=== PATIENT | female | born 1950 | race Caucasian/White ===

== ENCOUNTER → 2017-10-01 | Outpatient (CLI) | payer MEDICARE ==
--- NOTE | 2017-10-01 14:07 | US ---
EXAMINATION TYPE: US venous doppler duplex LE LT DATE OF EXAM: 10/01/2017 1:59 PM COMPARISON: US CLINICAL HISTORY: R60.0 Edema. Pt having pain left leg s/p fall SIDE PERFORMED: Left TECHNIQUE: The lower extremity deep venous system is examined utilizing real time linear array sonog braulio with graded compression, doppler sonography and color-flow sonography. VESSELS IMAGED: External Iliac Vein (EIV) Common Femoral Vein Deep Femoral Vein Greater Saphenous Vein * Femoral Vein Popliteal Vein Small Saphenous Vein * Proximal Calf Veins (* superficial vessels) Grayscale, color doppler, spectral doppler imaging performed of the deep veins of the lower extremity There is normal flow, compressibility, vascular waveforms. Left Leg: Negative for DVT Left message at Dr's office to Nubia at time of exam IMPRESSION: No evidence for DVT at this time.
== END | disposition home or self-care (01) ==
LOC: RADUSWWP 13:06
PROVIDERS: ATTEND Family Medicine
DX: R60.0 Localized edema (principal)

== ENCOUNTER → 2022-01-27 | Outpatient (CLI) | payer MEDICARE ==
--- NOTE | 2022-01-27 16:01 | P.SLEEP ---
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 Her sister has ZENA and on several occasions she has been told by her sister that she snores and she quits breathing at night. For that reason, the patient is concerned. 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 She is feeling tired and sleepy during the day. No restlessness in the lower extremity. No sleep paralysis sputum no hallucinati ons. No cataplexy. She has gained no weight over the years in fact she has lost approximately 9 pounds over the past 6 months. She doesn't take any naps during the day. No motor vehicle accident because of feeling drowsy or sleepy. No episodes of waking up choking or gasping for air. No unusual behavior or any form of aggressive behavior during sleep. No other history of any substance abuse. No alcoholism. The patient drinks one cup of decaffeinated coffee in the morning. She has chronic anxiety. She has history of heartburn for which she's taken Protonix 40 mg by mouth daily. She takes Xanax on an as needed basis. Her bronchial asthma is currently well controlled. Review of Systems Constitutional: Reports daytime sleepiness, Reports fatigue Eyes: denies as per HPI, denies blurred vision, denies bulging eye, denies decreased vision, denies diplopia, denies discharge, denies dry eye, denies irritation, denies itching, denies pain, denies photophobia, denies loss of peripheral vision, denies loss of vision, denies tunnel vision/blind spots Ears: deny: decreased hearing, ear discharge, earache, tinnitus Ears, nose, mouth and throat: Reports as per HPI (patient has chronic snoring) Breasts: absent: as per HPI, change in shape, gynecomastia, masses, nipple discharge, pain, skin changes, swelling Breasts: Reports as per HPI Cardiovascular: Reports decreased exercise tolerance Respiratory: Reports as per HPI, Reports snoring Gastrointestinal: Reports as per HPI Genitourinary: Reports as per HPI (tress urinary incontinence) Menstruation: Reports as per HPI Musculoskeletal: Reports frequent falls Musculoskeletal: absent: ankle pain, ankle stiffness, ankle swelling Integumentary: Reports as per HPI Neurological: Reports balance difficulties, Reports gait dysfunction, Reports weakness Psychiatric: Reports as per HPI Endocrine: Reports as per HPI Hematologic/Lymphatic: Reports as per HPI Allergic/Immunologic: Reports as per HPI Past Medical History Past Medical History: GERD/Reflux, Hyperlipidemia, Hypertension, Musculoskeletal Disorder Additional Past Medical History / Comment(s): urinary incontinence, IBS, s. heart murmur, back spasms History of Any Multi-Drug Resistant Organisms: None Reported Past Surgical History: Hernia Repair, Tonsillectomy Additional Past Surgical History / Comment(s): cystoscopy, colonoscopy Past Anesthesia/Blood Transfusion Reactions: No Reported Reaction Past Alcohol Use History: Occasional Past Drug Use History: None Reported Medications and Allergies Home Medications Medication Instructions Recorded Confirmed Type Aspirin 81 mg PO MOFR 02/14/15 02/19/15 History Baclofen [Lioresal] 10 mg PO TID PRN 02/14/15 02/19/15 History Cholecalciferol [Vitamin D3] 2,000 unit PO DAILY@1200 02/14/15 02/19/15 History Hyoscyamine Sulfate [Levsin] 0.125 mg PO Q4-6H PRN 02/14/15 02/19/15 History Ibuprofen [Motrin] 200 - 400 mg PO Q6HR PRN 02/14/15 02/19/15 History Lansoprazole [Prevacid] 30 mg PO DAILY 02/14/15 02/19/15 History Lisinopril-Hctz 20-25 mg 1 each PO DAILY 02/14/15 02/19/15 History [Zestoretic 20-25] Loperamide [Imodium] 1 mg PO QID PRN 02/14/15 02/19/15 History Oxybutynin Chloride [Ditropan] 5 mg PO BID 02/14/15 02/19/15 History Simvastatin [Zocor] 20 mg PO HS 02/14/15 02/19/15 History metroNIDAZOLE 1% GEL [Metrogel] 1 applic TOPICAL DAILY PRN 02/14/15 02/19/15 History Allergies Allergy/AdvReac Type Severity Reaction Status Date / Time Sulfa (Sulfonamide Allergy Rash/Hives Verified 02/19/15 07:53 Antibiotics) pentazocine lactate AdvReac Unknown Verified 02/19/15 07:53 [From Talwin] propoxyphene HCl AdvReac Unknown Verified 02/19/15 07:53 [From Darvon] propoxyphene napsylate AdvReac Unknown Verified 02/19/15 07:53 [From Darvocet-N] Physical Exam BP is 117/73, pulse is 75, respiration is 16, weight is 254 pounds, and the patient's Quicksburg score is at 6. Height is 5 feet 5 inches. Temperature is 96.8. Oxygen saturation is 97% on room air oxygen. The patient appeared well nourished and normally developed. Vital signs as documented. Head exam is unremarkable. No scleral icterus or corneal arcus noted. Neck is without jugular venous distension, thyromegaly, or carotid bruits. Carotid upstrokes are brisk bilaterally. Lungs are clear to auscultation and percussion. Cardiac exam reveals the PMI to be normally sized and situated. Rhythm is regular. First and second heart sounds normal. No murmurs, rubs or gallops. Abdominal exam reveals normal bowel sounds, no masses, no organomegaly and no aortic enlargement. Extremities are nonedematous and both femoral and pedal pulses are normal.Examination of the skin revealed no evidence of significant rashes, suspicious appearing nevi or other concerning lesions.Neurologically, the patient is awake and alert and the patient does not have any focal neurological deficit. Cranial nerves are essentially intact. Assessment and Plan Plan: 1 chronic fatigue/hypersomnia with an Quicksburg 6 with history of snoring or witnessed apneas. Consider underlying possibility of obstructive sleep apnea.in addition, the patient has developed a component of delayed sleep phase syndromesince fci. 2 chronic bronchial asthma, inactive in stable 3 chronic anxiety/depression 4. Urge incontinence while treated 5 acid reflux, treated with Protonix 6 osteoarthritis 7 hyperlipidemia 8 hypertension 9 difficulties with balance and mobility Plan we'll screen this patient 4 obstructive sleep apnea. I prefer to proceed with a home sleep study as the patient is unable to fall asleep early at night and she is following sleep after 4 AM. Having said this, we are going to gradually phase transition this patient to an earlier sleep schedule. The appropriate instructions were given to gradually transition this patient an earlier sleep schedule in an attempt to make asleep between 2 AM and 10 AM. This is the preferred sleep or sleeping time for this patient. At the same time, we are going to screen this patient for obstructive sleep apnea by a home study. We'll make further recommendation treatment if needed. Sleep Note - Sleep Note Sleep Note: Temperature: Pulse Rate: Respiratory Rate: Blood Pressure: SpO2: Height: Weight: BMI: Neck Circumference:
== END | disposition home or self-care (01) ==
LOC: SLEEP 15:01
PROVIDERS: ATTEND Internal Medicine Critical Care Medicine
DX: J45.909 Unspecified asthma, uncomplicated (principal); K21.9 Gastro-esophageal reflux disease without esophagitis; M19.90 Unspecified osteoarthritis, unspecified site; E78.5 Hyperlipidemia, unspecified; I10 Essential (primary) hypertension
CPT/HCPCS: 99211

== ENCOUNTER → 2022-06-08 | Outpatient (CLI) | payer MEDICARE ==
[2022-06-08 22:28] LABS: Basophils # (A) 0.03 X 10*3/uL (0.00-0.10); Basophils % (A) 0.5 %; Eosinophils # (A) 0.12 X 10*3/uL (0.04-0.35); Eosinophils % (A) 2.2 %; HCT 40.7 % (37.2-46.3); HGB 12.8 g/dL (12.0-15.0); Immature Grans, Automated 0.2 %; Lymphocytes # (A) 1.49 X 10*3/uL (0.90-5.00); Lymphocytes % (A) 27.1 %; MCH 29.2 pg (27.0-32.0); MCHC 31.4 g/dL (32.0-37.0); MCV 92.9 fL (80.0-97.0); Mean Platelet Volume 9.8 fL (9.5-12.2); Monocytes # (A) 0.46 X 10*3/uL (0.20-1.00); Monocytes % (A) 8.4 %; NRBC Per 100 WBC 0 /100 WBCS (0.0-0.0); Neutrophils # (A) 3.39 X 10*3/uL (1.80-7.70); Neutrophils % (A) 61.6 %; Platelet Count 282 X 10*3/uL (140-440); RBC 4.38 X 10*6/uL (4.10-5.20); RDW 14.4 % (11.5-14.5)
== END | disposition home or self-care (01) ==
LOC: LABWHC1 16:25
PROVIDERS: ATTEND Internal Medicine Critical Care Medicine
DX: R91.8 Other nonspecific abnormal finding of lung field (principal); R05.9 Cough, unspecified
CPT/HCPCS: 36415; 85025; 86480

== ENCOUNTER → 2022-06-16 | Outpatient (CLI) | payer MEDICARE ==
[2022-06-16 15:45] LABS: ALT 11 U/L (4-34); AST 27 U/L (14-36); African American GFR (CKD) 75 (>60 ml/min/1.73 sqM); Albumin 4.2 g/dL (3.5-5.0); Albumin/Globulin Ratio 1.8; Alkaline Phosphatase 65 U/L (38-126); Anion Gap 11 mmol/L; Blood Urea Nitrogen 21 mg/dL (7-17); Carbon Dioxide 24 mmol/L (22-30); Chloride 105 mmol/L (98-107); Globulin 2.4 g/dL; Glucose 105 mg/dL (74-99); Non-African American GFR(CKD) 65 (>60 ml/min/1.73 sqM); Potassium 3.9 mmol/L (3.5-5.1); Sodium 140 mmol/L (137-145); Total Bilirubin 0.7 mg/dL (0.2-1.3); Total Protein 6.6 g/dL (6.3-8.2)
--- NOTE | 2022-06-16 17:55 | CT ---
EXAMINATION TYPE: CT angio chest CT DLP: 600.2 mGycm, Automated exposure control for dose reduction was used. DATE OF EXAM: 06/16/2022 4:29 PM COMPARISON: Chest radiograph 06/11/2022. Prior CT chest report 06/04/2022. CLINICAL INDICATION:Female, 72 years old with history of J18.1 LOBAR PNEUMONIA, UNSPECIFIED ORGANISM; Lobar pneumonia. Pt states she has pain and bloody sputum TECHNIQUE/CONTRAST: CTA scan of the thorax is performed with IV Contrast, patient injected with 100cc mL of Isovue 370, p ulmonary embolism protocol. MIP images are created and reviewed. FINDINGS: Pulmonary Artery: No definitive filling defects to suggest pulmonary emboli. The pulmonary artery is enlarged measuring 4 cm. No reflux of contrast in the IVC. Lungs/Pleura: No pneumothorax or pleural effusion. Pleural-based somewhat wedge-shaped consolidative opacities within the superior segment of the right lower lobe. Airway: Large airways are patent. Heart: Heart is within normal limits for size.. No pericardial effusion. Vasculature: No evidence of aortic aneurysm. Mediastinum: No gross evidence of adenopathy. Musculoskeletal: No acute osseous abnormalities. Degenerative changes of the visualized spine. Soft Tissues: Unremarkable. Lower neck: No significant findings. Upper Abdomen: Cysts demonstrated within the left hepatic lobe with largest measuring up to 1.7 cm. N onobstructive bilateral renal calculi with largest on the right measuring 11 mm and largest on the le ft measuring 8 mm. IMPRESSION: 1. No definitive evidence of pulmonary embolism. 2. Pleural-based somewhat wedge-shaped consolidative opacities within the superior segment of the rig ht lower lobe. Etiologies include pulmonary infarct versus neoplasm versus infection. Further workup is recommended with consideration for short-term follow-up. 3. Pulmonary arterial hypertension. 4. Nonobstructive bilateral renal calculi.
== END | disposition home or self-care (01) ==
LOC: RADCTMAIN 14:38
PROVIDERS: ATTEND Internal Medicine Critical Care Medicine
DX: I26.99 Other pulmonary embolism without acute cor pulmonale (principal); I10 Essential (primary) hypertension; N20.0 Calculus of kidney
CPT/HCPCS: 85379; 80053; 87107; 71275; 36415; Q9967

== ENCOUNTER → 2022-10-14 | Outpatient (CLI) | payer MEDICARE ==
--- NOTE | 2022-10-15 21:48 | CT ---
EXAMINATION TYPE: CT chest wo con DATE OF EXAM: 10/14/2022 COMPARISON: 06/16/2022 HISTORY: 72 year-old female J18.1, follow-up pneumonia, pt did have blood clot in lungs sept 2021. TECHNIQUE: Contiguous axial scanning of the chest without IV contrast. Coronal and sagittal reconstru ctions performed. CT DLP: 492 mGycm Automated exposure control for dose reduction was used. FINDINGS: Heart is upper limits of normal in size with small anterior pericardial effusion measuring up to 8 mm thick. Scattered three-vessel coronary artery calcifications are present anterior marker for coronar y artery disease. Mild episodic arch calcifications with conventional arch also branching anatomy. No thoracic lymphadenopathy by CT size criteria. Large caliber to the main right and left pulmonary arteries measuring up to 3.3 cm compatible with un derlying pulmonary hypertension. Calcified granuloma posterior right midlung. Couple tiny 3 mm pulmonary nodules lateral left midlung , axial image 27 remain unchanged. Minimal emphysematous change. Mild diffuse bronchial wall thickening. Previous lobulated subpleural o pacities posterior right midlung measuring up to 3.5 cm have partially improved and now have a more s trandy configuration suggesting interval development of pleural-parenchymal scarring. No progressive consolidation or pleural effusion. Visualized upper abdomen shows no gross adenopathy. Bones: Pectus carinatum noted. Degenerative change sternoclavicular joints. Mild degenerative disc di sease at the lower thoracic spine. No osseous destructive process. IMPRESSION: 1. UNDERLYING PULMONARY ARTERIAL HYPERTENSION. MINIMAL EMPHYSEMATOUS CHANGE. EVIDENCE OF PRIOR GRANUL OMATOUS DISEASE. 2. PREVIOUS 3.5 CM LOBULATED SUBPLEURAL OPACITY POSTERIOR RIGHT MIDLUNG HAS PARTIALLY IMPROVED AND NO W HAS A MORE STRANDY CONFIGURATION SUGGESTING INTERVAL DEVELOPMENT OF PLEURAL-PARENCHYMAL SCARRING. C ONSIDER AN ADDITIONAL ONE-YEAR SURVEILLANCE FOLLOW-UP. 3. NO NEW OR ENLARGING PULMONARY NODULE SEEN.
== END | disposition home or self-care (01) ==
LOC: RADCTMAIN 14:17
PROVIDERS: ATTEND Internal Medicine Critical Care Medicine
DX: I27.21 Secondary pulmonary arterial hypertension (principal); J43.9 Emphysema, unspecified; J84.10 Pulmonary fibrosis, unspecified; J18.1 Lobar pneumonia, unspecified organism; R91.8 Other nonspecific abnormal finding of lung field
CPT/HCPCS: 36415; 71250; 82565; 84520

== ENCOUNTER → 2023-03-10 | Outpatient (CLI) | payer MEDICARE ==
[2023-03-10 15:18] LABS: African American GFR (CKD) 69 (>60 ml/min/1.73 sqM); Blood Urea Nitrogen 21 mg/dL (7-17); Non-African American GFR(CKD) 60 (>60 ml/min/1.73 sqM)
--- NOTE | 2023-03-11 15:44 | CT ---
EXAMINATION TYPE: CT urogram wo/w con DATE OF EXAM: 03/10/2023 COMPARISON: None INDICATION: HEMATURIA X YEARS DLP: 5074.40 mGycm, Automated exposure control for dose reduction was used. CONTRAST: 80 mL of Isovue 300. Study performed without Oral Contrast TECHNIQUE: Axial images were obtained from above the diaphragm to the pubic rami in the axial plane a t 5 mm thick sections. Reconstructed images are reviewed on the computer in the coronal plane. Thre e-D reconstructed images through the renal collecting systems is performed separately by the technolo gist. Delayed images were obtained. FINDINGS: CT urogram: Renal collecting systems appear normal. There is slight prominence of the right renal pelvis which may be partially extrarenal. Ureter follows a normal caliber and course and conto ur to the urinary bladder. There are segments of the distal right ureter in the mid left ureter which are not visualized during this examination. No suspicious changes on the source images are evident. Limited CT sections are obtained the lung bases. The lung bases are clear. Coronary artery calcifica tion is present. CT ABDOMEN: Liver: There is a 1.4 cm cyst at the inferior pole right tip of the liver. Spleen: Normal Pancreas: Normal Adrenal glands: The adrenal glands are normal. Gallbladder: Normal Kidneys: There is a 0.7 cm calcification mid left kidney. There is a 1.2 x 0.8 cm mid inferior pole right renal calcification. There is a 0.7 cm calcification in the inferior pole left kidney no obstru cting renal stones are evident. No hydronephrosis or hydroureter is evident.. No cysts are present. Aorta: Vascular calcification is within the aorta. Inferior vena cava: Normal. CT PELVIS: There is an anterior abdominal wall hernia with multiple lobes in opening of 2.8 cm perium bilical region. Loops of bowel within the abdomen and pelvis are normal. The study is without oral contrast limit ing bowel evaluation. Appendix: Normal as visualized. Urinary bladder: Decompressed, and normal as visualized Genitourinary structures: Uterus is normal. Adnexa are normal. Osseous structures: No suspicious lytic or sclerotic lesions. IMPRESSIONS: 1. No suspicious changes CT urogram to account for hematuria 2. Segmental nonvisualization of ureters limits the examination somewhat. 3. Multiple bilateral nonobstructing renal stones
== END | disposition home or self-care (01) ==
LOC: RADCTMAIN 14:24
PROVIDERS: ATTEND Family Medicine
DX: N20.0 Calculus of kidney (principal)
CPT/HCPCS: 82565; 84520; 74178; 36415; 74400; Q9967

== ENCOUNTER → 2023-07-01 | Outpatient (CLI) | payer MEDICARE ==
[2023-07-01 13:16] LABS: African American GFR (CKD) 50 (>60 ml/min/1.73 sqM); Blood Urea Nitrogen 17 mg/dL (7-17); Non-African American GFR(CKD) 43 (>60 ml/min/1.73 sqM)
--- NOTE | 2023-07-01 13:54 | CT ---
EXAMINATION TYPE: CT chest wo con DATE OF EXAM: 07/01/2023 COMPARISON: 10/14/2022 HISTORY: pneumonia CT DLP: [address] of the chest was performed with lung and mediastinal window settings submitted. The la ck of contrast limits evaluation of the vascular, mediastinal and parenchymal structures including th e upper abdomen. LUNGS: There is continued pleural-parenchymal scarring right lower lobe posteriorly unchanged from pr ior study. Scattered sub-5 mm pulmonary nodules some of which are calcified are again noted. No new n odules are seen. There is no evidence for focal consolidation. No volume loss. No evidence of pleural effusion. MEDIASTINUM/CLARA: Thoracic aorta is of normal caliber with limited evaluation given lack of contrast . The heart is not enlarged. No evidence for mediastinal mass. No lymph nodes greater than 1cm. P rominence of the pulmonary artery compatible pulmonary arterial hypertension. Sliver of pericardial e ffusion is redemonstrated. UPPER ABDOMEN: There is a 7.5 mm calculus which is partially imaged in the region of the right renal pelvis. The renal collecting systems appear prominent bilaterally and underlying hydronephrosis is no t excluded. Correlate clinically. OTHER: No significant other abnormality. IMPRESSION: 1. Pleural-parenchymal scarring right lower lobe unchanged. 2. Scattered sub-5 mm pulmonary nodules are stable some of which are calcified indicating granulomato us disease. 3. Pulmonary arterial hypertension redemonstrated. 4. Fullness of the renal collecting systems is partially imaged. Calculus right renal pelvis.
== END | disposition home or self-care (01) ==
LOC: RADCTMAIN 12:16
PROVIDERS: ATTEND Internal Medicine Critical Care Medicine
DX: J18.1 Lobar pneumonia, unspecified organism (principal); J98.4 Other disorders of lung; L92.9 Granulomatous disorder of the skin and subcutaneous tissue, unspecified; R91.8 Other nonspecific abnormal finding of lung field; I27.21 Secondary pulmonary arterial hypertension; N20.0 Calculus of kidney
CPT/HCPCS: 71250; 82565; 84520

== ENCOUNTER → 2023-08-18 | Outpatient (CLI) | payer MEDICARE ==
[2023-08-19 02:38] LABS: Basophils # (A) 0.03 X 10*3/uL (0.00-0.10); Basophils % (A) 0.4 %; Eosinophils % (A) 1.4 %; HCT 35.1 % (37.2-46.3); HGB 10.8 g/dL (12.0-15.0); Lymphocytes # (A) 1.59 X 10*3/uL (0.90-5.00); Lymphocytes % (A) 22.4 %; MCH 26.6 pg (27.0-32.0); MCHC 30.8 g/dL (32.0-37.0); MCV 86.5 FL (80.0-97.0); Monocytes # (A) 0.78 X 10*3/uL (0.20-1.00); NRBC Per 100 WBC 0 X 10*3/uL (0.00-0.01); Neutrophils # (A) 4.59 X 10*3/uL (1.80-7.70); Neutrophils % (A) 64.7 %; Platelet Count 300 X 10*3/uL (140-440); RBC 4.06 X 10*6/uL (4.10-5.20); RDW 13.7 % (11.5-14.5)
[2023-08-19 03:06] LABS: Appearance,Urine Turbid (Clear); Bilirubin,Urine Not Performed (Negative); Blood,Urine Large (Negative); Color,Urine Red (Yellow); Ketones,Urine Not Performed (Negative); Nitrite,Urine Not Performed (Negative); Urobilinogen,Urine Not Performed (>1.0)
[2023-08-19 03:33] LABS: Blood Urea Nitrogen 16.7 mg/dL (9.0-27.0); Glucose 87 mg/dL (70-110)
[2023-08-19 03:34] LABS: Calcium 9.3 mg/dL (8.7-10.3); Chloride 102 mmol/L (96-109); Potassium 3.8 mmol/L (3.5-5.5); Sodium 139 mmol/L (135-145)
[2023-08-19 04:33] LABS: Bacteria,Urine None Seen (None Seen)
== END | disposition home or self-care (01) ==
LOC: LABPAT 15:46
PROVIDERS: ATTEND Urology
DX: Z01.812 Encounter for preprocedural laboratory examination (principal); N20.0 Calculus of kidney; R31.29 Other microscopic hematuria
CPT/HCPCS: 80048; 81001; 85025; 87086

== ENCOUNTER 2023-08-24 11:31 | Day surgery (SDC) | payer MEDICARE ==
[~2023-08-24 11:31] MED LIST: DEXAMETHASONE SOD PHOSPHATE 4 MG/ML 1 ML VIAL IV ONE; HYDROmorphone 0.5 MG/0.5 ML SYRINGE IVP PRN; LACTATED RINGERS 1,000 ML IV SCH; MIDAZOLAM 2 MG/2 ML VIAL IV PRN; ONDANSETRON 4 MG/2 ML VIAL IVP ONE
--- NOTE | 2023-08-24 12:00 | XR ---
EXAMINATION TYPE: XR KUB DATE OF EXAM: 08/24/2023 COMPARISON: NONE HISTORY: Preop TECHNIQUE: One view abdominal series FINDINGS: The osseous structures are intact. The bowel gas pattern is nonspecific. Technique Limited exam with bilateral consolidation pleural thickening or small effusion. Scoliosis and degenerative change of t he spine. Left kidney: There are at least 4 calcifications overlying the left mid to lower pole kidney the larg est measuring 7 mm. There appears to be a calcification overlying the right transverse process of L4 likely within the ri ght renal pelvis measuring 1 cm. IMPRESSION: 1. Nonspecific abdomen. Bilateral nephrolithiasis. 2. Bilateral lower lobe atelectasis or infiltrate with small left effusion.
--- NOTE | 2023-08-24 12:53 | P.HPIHPCON ---
History of Present Illness H&P Date: 08/24/23 Chief Complaint: Bilateral renal stones This is a 73-year-old female with history of a 1 cm right-sided renal pelvis stone causing hydronephrosis and intermittent gross hematuria and multiple left- sided renal stone. Discussed with with her I do recommend addressing the right- sided renal stone given the hydronephrosis. She was also interested in addressing her left-sided renal stone. Option of bilateral ureteroscopy with holmium laser was discussed. Aware of the risk which includes but not limited to bleeding, infection, injury to the ureter. Risk of anesthesia was also discussed. She understood all the risk and agree to proceed Consent for Procedure: I have explained the operation/procedure to the patient, including the risks, benefits, side effects, alternative therapies (including not receiving the proposed treatment or service), the likelihood of the patient achieving his/her goals, and potential recuperation problems for the procedure/sedation/analgesia, as well as any blood products, if indicated. I also explained to the patient the risks, benefits and side effects of the alternatives, as well as the risks related to not receiving the proposed procedure, care, treatment, or services. Past Medical History Past Medical History: Atrial Fibrillation, Asthma, GERD/Reflux, Hyperlipidemia, Hypertension, Musculoskeletal Disorder, Pulmonary Embolus (PE), Renal Disease, Sleep Apnea/CPAP/BIPAP Additional Past Medical History / Comment(s): urinary incontinence, IBS, s. heart murmur, back spasms, cyst on liver. kidney stones with blood in urine si nce 06/27/23. wearing a heart monitor. to be started on metoprolol. reduced kidney function, not using cpap right now. edema to lower legs. History of Any Multi-Drug Resistant Organisms: None Reported Past Surgical History: Hernia Repair, Tonsillectomy Additional Past Surgical History / Comment(s): cystoscopy, colonoscopy, umbilical hernia Past Anesthesia/Blood Transfusion Reactions: No Reported Reaction Past Psychological History: Anxiety Smoking Status: Never smoker Past Alcohol Use History: Occasional Past Drug Use History: None Reported - Past Family History Father Family Medical History: CVA/TIA Additional Family Medical History / Comment(s): svt Mother Additional Family Medical History / Comment(s): pulmonary HTN, kidney stones Medications and Allergies Home Medications Medication Instructions Recorded Confirmed Type Baclofen [Lioresal] 10 mg PO TID PRN 02/14/15 08/24/23 History Cholecalciferol [Vitamin D3] 5,000 unit PO MOWEFR 02/14/15 08/24/23 History Hyoscyamine Sulfate [Levsin] 0.125 mg PO Q4-6H PRN 02/14/15 08/23/23 History Loperamide [Imodium] 1 mg PO QID PRN 02/14/15 08/24/23 History Simvastatin [Zocor] 20 mg PO HS 02/14/15 08/24/23 History metroNIDAZOLE 1% GEL [Metrogel] 1 applic TOPICAL DAILY PRN 02/14/15 08/23/23 History oxyBUTYnin chloride [Ditropan] 5 mg PO TID 02/14/15 08/24/23 History Citalopram Hydrobromide 40 mg PO 1200 08/16/23 08/24/23 History [Citalopram HBr] Furosemide [Lasix] 40 mg PO Q48H 08/16/23 08/24/23 History Pantoprazole [Protonix] 40 mg PO Q48H 08/16/23 08/24/23 History Rivaroxaban [Xarelto] 20 mg PO HS 08/16/23 08/24/23 History lisinopriL [Lisinopril] 20 mg PO 1200 08/16/23 08/24/23 History Metoprolol Succinate (ER) [Toprol 25 mg PO BID 08/23/23 08/24/23 History Xl] Allergies Allergy/AdvReac Type Severity Reaction Status Date / Time Sulfa (Sulfonamide Allergy Rash/Hives Verified 08/16/23 15:53 Antibiotics) sulfamethoxazole Allergy Rash/Hives Verified 08/24/23 12:05 [From Bactrim] trimethoprim [From Bactrim] Allergy Rash/Hives Verified 08/24/23 12:05 NSAIDS (Non-Steroidal AdvReac cannot Verified 08/16/23 16:31 Anti-Inflamma take per her DR due to kidney issues pentazocine lactate AdvReac Unknown Verified 08/16/23 15:53 [From Talwin] propoxyphene HCl AdvReac Unknown Verified 08/16/23 15:53 [From Darvon] propoxyphene napsylate AdvReac Unknown Verified 08/16/23 15:53 [From Darvocet-N] Surgical - Exam Vital Signs Temp Pulse Resp BP Pulse Ox 98.8. F H 109 H 16 157/71 94 L 08/24/23 12:21 08/24/23 12:21 08/24/23 12:21 08/24/23 12:21 08/24/23 12:21 - General no distress, no pain - Eyes normal ocular movement, no pale - ENT normal nares, normal mucosa - Respiratory normal expansion, normal respiratory effort - Abdomen Abdomen: soft, non tender - Psychiatric oriented to time, oriented to person, oriented to place Assessment and Plan Assessment: OR for bilateral ureteroscopy, holmium laser lithotripsy, stone basketing and stent insertion
[2023-08-24] MEDS ORDERED: PHENYLEPHRINE-0.9% NACL SYG 1,000 MCG/10 ML SYRINGE ONE (12:56)
[2023-08-24] MEDS ORDERED: LIDOCAINE 1% INJ 10MG/ML (20 ML MDV) ONE (12:56)
[2023-08-24] MEDS ORDERED: ROCURONIUM 10 MG/ML (5 ML VIAL) IV ONE (12:56)
[2023-08-24] MEDS ORDERED: SUCCINYLCHOLINE CHLORIDE 200 MG/10 ML VIAL IV ONE (12:56)
[2023-08-24] MEDS ORDERED: GLYCOPYRROLATE 0.2 MG/ML 2 ML VIAL ONE (12:56)
[2023-08-24] MEDS ORDERED: fentaNYL (PF) 50 MCG/ML 2 ML AMP ONE (12:56)
[2023-08-24] MEDS ORDERED: METOPROLOL TARTRATE 5 MG/5 ML VIAL IVP ONE (12:56)
[2023-08-24] MEDS ORDERED: PROPOFOL 10 MG/ML 20 ML VIAL IV ONE (12:56)
[2023-08-24] MEDS ORDERED: NEOSTIGMINE 1 MG/ML 10 ML VIAL ONE (12:56)
--- NOTE | 2023-08-24 14:57 | FL ---
EXAMINATION TYPE: FL guidance operating room DATE OF EXAM: 08/24/2023 HISTORY: Fluoroscopy time Total dose area product (DAP) in uGy*m?, mGy*cm? (or similar): 10.057 IMPRESSION: 1. Fluoroscopy time.
--- NOTE | 2023-08-24 15:01 | P.OP ---
Date of Procedure: 08/24/23 Preoperative Diagnosis: Bilateral renal stone Postoperative Diagnosis: Same Procedure(s) Performed: Cystoscopy, bilateral ureteroscopy, holmium laser lithotripsy, stone basketing and stent insertion Implants: 6-Bahraini by 26 cm stent in the bilateral ureters Anesthesia: [facility] Surgeon: Deni Amor Estimated Blood Loss (ml): 10 Pathology: other (bilateral renal stone) Condition: stable Disposition: PACU Indications for Procedure: This is a 73-year-old female with history of a 1 cm right-sided renal pelvis stone causing hydronephrosis and intermittent gross hematuria and multiple left- sided renal stone. Discussed with with her I do recommend addressing the right- sided renal stone given the hydronephrosis. She was also interested in addressing her left-sided renal stone. Option of bilateral ureteroscopy with holmium laser was discussed. Aware of the risk which includes but not limited to bleeding, infection, injury to the ureter. Risk of anesthesia was also discussed. She understood all the risk and agree to proceed Operative Findings: 1 cm stone in the renal pelvis on the right, 3 stones in the left kidney Description of Procedure: Patient brought to the operating room, general anesthesia was induced. She was prepped and draped in sterile fashion and placed in dorsal lithotomy position. Cystoscopy fitted 21-Bahraini sheath was inserted per urethra, cystoscopy was performed which showed no abnormality in the bladder. Attention was then carried to the right ureteral orifice which was intubated with a sensor wire. Next under fluoroscopy 1113 Bahraini access sheath was passed over the wire and into the proximal ureter. This time a flexible ureteroscope was inserted through the access sheath, renoscopy was performed which showed a large stone in the renal pelvis. Using the holmium laser the stone was fragmented, stone fragments were removed using stone basket. Repeat renoscopy showed no sizable stones or injury to the kidney. On fluoroscopy there was no radiopaque d ensities, at this time pullback ureteroscopy was performed which showed no injury to the ureter or any ureteral stones, as ureteroscope was withdrawn, a sensor wire was advanced through. Next a ureteral stent was passed over the wire, the proximal curl was visualized on fluoroscopy and the distal curl was visualized using cystoscope. Attention was then carried to the left ureteral orifice which was intubated with a sensor wire. Next under fluoroscopy 1113 [place]i access sheath passed over the wire the proximal ureter. Next a flexible ureteroscope was inserted through the access sheath, renoscopy was performed which showed 3 stones throughout the kidney. Using the holmium laser the stones were fragmented, stones fragments were removed using the stone basket. Repeat renoscopy showed no sizable fragments or injury to the kidney, pullback ureteroscopy was performed which showed no injury to ureter or any ureteral stones. As the ureteroscope was withdrawn, a sensor wire was advanced through. Next a ureteral stent was passed over the wire, the proximal curl was visualized on fluoroscopy and the distal curl was visualized using cystoscope. The bladder was emptied at the end of the case. Patient tolerated procedure well was taken to recovery
[2023-08-24 15:10] VITALS: TEMP 97.6
[2023-08-24 16:10] VITALS: RESP 20
[2023-08-24 17:07] VITALS: BP 124/79; PULSE 64
== END 2023-08-24 16:45 | disposition home or self-care (01) ==
LOC: OR 11:31
PROVIDERS: ATTEND Urology
DX: N13.2 Hydronephrosis with renal and ureteral calculous obstruction (principal); I48.91 Unspecified atrial fibrillation; K21.9 Gastro-esophageal reflux disease without esophagitis; E78.5 Hyperlipidemia, unspecified; I10 Essential (primary) hypertension; G47.33 Obstructive sleep apnea (adult) (pediatric); J45.909 Unspecified asthma, uncomplicated; Z86.73 Personal history of transient ischemic attack (TIA), and cerebral infarction without residual deficits; F10.90 Alcohol use, unspecified, uncomplicated; Z82.49 Family history of ischemic heart disease and other diseases of the circulatory system; Z88.2 Allergy status to sulfonamides; Z79.899 Other long term (current) drug therapy
CPT/HCPCS: 82365; 74018; 52356; J1100; J0690; J2405

== ENCOUNTER 2023-09-16 08:45 | Day surgery (SDC) | payer MEDICARE ==
[~2023-09-16 08:45] MED LIST changes: -DEXAMETHASONE SOD PHOSPHATE 4 MG/ML 1 ML VIAL IV ONE; -HYDROmorphone 0.5 MG/0.5 ML SYRINGE IVP PRN; +LIDOCAINE 1% (10MG/ML) FOR IV START INTRADERMA PRN; -MIDAZOLAM 2 MG/2 ML VIAL IV PRN; -ONDANSETRON 4 MG/2 ML VIAL IVP ONE
[2023-09-16] MEDS: SODIUM CHLORIDE 0.9% 1,000 ML IV SCH ×2 (09:40→09:59)
[2023-09-16] MEDS ORDERED: GLYCOPYRROLATE 0.2 MG/ML 2 ML VIAL ONE (09:56)
[2023-09-16] MEDS ORDERED: MIDAZOLAM 2 MG/2 ML VIAL ONE (09:56)
[2023-09-16] MEDS ORDERED: PROPOFOL 10 MG/ML 20 ML VIAL IV ONE (09:56)
[2023-09-16] MEDS ORDERED: LIDOCAINE 1% INJ 10MG/ML (20 ML MDV) ONE (09:56)
[2023-09-16] MEDS ORDERED: ePHEDrine 50 MG/ML 1 ML VIAL ONE (09:56)
[2023-09-16] MEDS ORDERED: BENZOCAINE SPRAY 1 CAN TOPICAL ONE (10:01)
[2023-09-16] MEDS ORDERED: FUROSEMIDE 40 MG TAB PO SCH (10:30)
--- NOTE | 2023-09-16 10:37 | P.PCN ---
Date of Procedure: 09/16/23 Description of Procedure: Indication: Atrial fibrillation Procedure Description: After explaining the procedure to the patient, it's risk and complications, blood pressure, heart rate and O2 saturation were monitored. The throat was sprayed with Cetacaine. Patient received sedation per anesthesia department. The probe was introduced into the esophagus without difficulty. Images were obtained. Following that, the probe was removed. There was no immediate complication. Findings: Biatrial enlargement was noted, left atrial appendage is normal. Left ventricular systolic function is borderline normal, ejection fraction 50-55%. Aortic valve revealed fibrocalcific changes with preserved opening. Mitral annulus calcification was noted. Tricuspid valve is normal. No pericardial effusion was noted. Contrast bubble study revealed no shunting across the intra-atrial septum. Doppler: Pulse wave and color Doppler were obtained, and revealed moderate eccentric mitral regurgitation with mild to moderate tricuspid regurgitation. There is no shunting by color Doppler study Conclusion: 1. Biatrial enlargement 2. Normal appearance of the left atrial appendage 3. Left ventricular systolic function borderline normal 4. Moderate eccentric mitral regurgitation with mild to moderate tricuspid re gurgitation 5. No shunting across the intra-atrial septum Cardioversion: After obtaining CAIT and sedated state synchronized biphasic cardioversion using 150 J was performed with scientologist of sinus mechanism with sinus bradycardia, she had episodes of junctional rhythm. There was no immediate complications.
[2023-09-16 11:18] VITALS: PULSE 45; RESP 16; TEMP 98
[2023-09-16 11:47] VITALS: BP 104/64
[2023-09-16] MEDS ORDERED: NON FORMULARY DRUG (Citalopram Hydrobromide [Citalopram Hbr] 40 MG Tablet) PO SCH (12:00)
[2023-09-16] MEDS ORDERED: lisinopriL 20 MG TAB PO SCH (12:00)
[2023-09-16] MEDS ORDERED: DRONEDARONE 400 MG TAB PO SCH (17:30)
[2023-09-16] MEDS ORDERED: NON FORMULARY DRUG (Simvastatin 20 MG Tab) PO SCH (21:00)
[2023-09-16] MEDS ORDERED: RIVAROXABAN 20 MG TAB PO SCH (21:00)
== END 2023-09-16 11:54 | disposition home or self-care (01) ==
LOC: OR 08:45
PROVIDERS: ATTEND Internal Medicine Interventional Cardiology
DX: I08.1 Rheumatic disorders of both mitral and tricuspid valves (principal); I48.91 Unspecified atrial fibrillation; I10 Essential (primary) hypertension; M10.9 Gout, unspecified; K21.9 Gastro-esophageal reflux disease without esophagitis; E78.5 Hyperlipidemia, unspecified; M19.90 Unspecified osteoarthritis, unspecified site; K58.9 Irritable bowel syndrome, unspecified; F10.90 Alcohol use, unspecified, uncomplicated; G47.33 Obstructive sleep apnea (adult) (pediatric); Z88.2 Allergy status to sulfonamides; Z88.1 Allergy status to other antibiotic agents; Z88.5 Allergy status to narcotic agent; Z88.6 Allergy status to analgesic agent; Z91.011 Allergy to milk products; Z79.899 Other long term (current) drug therapy; Z79.01 Long term (current) use of anticoagulants; Z87.891 Personal history of nicotine dependence; Z86.718 Personal history of other venous thrombosis and embolism; Z86.711 Personal history of pulmonary embolism
CPT/HCPCS: 93312; 93320; 93325; 92960; J2250; J2001; J2704

== ENCOUNTER → 2023-11-23 | Outpatient (CLI) | payer MEDICARE ==
[2023-11-23 16:34] LABS: Anisocytosis Slight; HCT 31.9 % (34.0-46.0); Hypochromasia Marked; MCH 24.8 pg (25.0-35.0); MCHC 31.5 g/dL (31.0-37.0); MCV 78.8 fL (80.0-100.0); Mean Platelet Volume 7.5; Microcytosis Slight; Platelet Count 300 k/uL (150-450); RBC 4.04 m/uL (3.80-5.40); RDW 17.2 % (11.5-15.5); WBC 5.4 k/uL (3.8-10.6)
[2023-11-23 16:51] LABS: African American GFR (CKD) 60 (>60 ml/min/1.73 sqM); Anion Gap 9 mmol/L; Blood Urea Nitrogen 17 mg/dL (7-17); Carbon Dioxide 25 mmol/L (22-30); Chloride 104 mmol/L (98-107); Non-African American GFR(CKD) 52 (>60 ml/min/1.73 sqM); Potassium 3.7 mmol/L (3.5-5.1); Sodium 138 mmol/L (137-145)
== END | disposition home or self-care (01) ==
LOC: LABPAT 15:27
PROVIDERS: ATTEND Internal Medicine Clinical Cardiac Electrophysiology
DX: Z01.812 Encounter for preprocedural laboratory examination (principal); I48.19 Other persistent atrial fibrillation; I51.7 Cardiomegaly
CPT/HCPCS: 80051; 82565; 84520; 85027

== ENCOUNTER 2023-11-25 06:16 | Inpatient (IN) | payer MEDICARE ==
[2023-11-18 15:25] VITALS: BMI 40.7
[2023-11-25] MEDS: SODIUM CHLORIDE 0.9% 1,000 ML IV SCH (06:52)
[2023-11-25 07:42] LABS: ALT 18 U/L (4-34); AST 24 U/L (14-36); African American GFR (CKD) 59 (>60 ml/min/1.73 sqM); Anion Gap 8 mmol/L; Blood Urea Nitrogen 22 mg/dL (7-17); Calcium 9.3 mg/dL (8.4-10.2); Carbon Dioxide 30 mmol/L (22-30); Chloride 104 mmol/L (98-107); Glucose 90 mg/dL (74-99); Non-African American GFR(CKD) 51 (>60 ml/min/1.73 sqM); Potassium 3.5 mmol/L (3.5-5.1); Sodium 142 mmol/L (137-145); Total Bilirubin 0.8 mg/dL (0.2-1.3); Total Protein 6.5 g/dL (6.3-8.2)
[2023-11-25 07:43] LABS: Alkaline Phosphatase 69 U/L (38-126)
[2023-11-25] MEDS ORDERED: ONDANSETRON 4 MG/2 ML VIAL ONE (11:20)
[2023-11-25] MEDS ORDERED: SUCCINYLCHOLINE CHLORIDE 200 MG/10 ML VIAL IV ONE (11:20)
[2023-11-25] MEDS ORDERED: HEPARIN SODIUM,PORCINE 5,000 UNIT/ML 1 ML VIAL ONE (11:20)
[2023-11-25] MEDS ORDERED: fentaNYL (PF) 50 MCG/ML 2 ML AMP ONE (11:20)
[2023-11-25] MEDS ORDERED: MIDAZOLAM 2 MG/2 ML VIAL ONE (11:20)
[2023-11-25] MEDS: SODIUM CHLORIDE 0.9% 850 ML IV ONE (11:20)
[2023-11-25] MEDS ORDERED: LIDOCAINE 1% INJ 10MG/ML (20 ML MDV) ONE ×2 (11:20→11:32)
[2023-11-25] MEDS ORDERED: HEPARIN SODIUM,PORCINE 10,000 UNIT/ML 1 ML VIAL ONE (11:20)
[2023-11-25] MEDS ORDERED: ATROPINE SULFATE 0.4 MG/ML 1 ML VIAL ONE (11:20)
[2023-11-25] MEDS ORDERED: PHENYLEPHRINE 10 MG/ML VIAL ONE (11:20)
[2023-11-25] MEDS ORDERED: PROPOFOL 10 MG/ML 20 ML VIAL IV ONE (11:20)
[2023-11-25] MEDS: HEPARIN SOD,PORK IN 0.45% NACL 25,000 UNIT in 0.45% NACL 1 250ML.BAG IV ONE (12:05)
[2023-11-25] MEDS: LIDOCAINE 1% INJ 10MG/ML (20 ML MDV) SQ ONE (12:07)
[2023-11-25] MEDS: IOPAMIDOL-370 100ML BTL INJ ONE (13:50)
[2023-11-25] MEDS ORDERED: ALPRAZolam 0.25 MG TAB PO PRN (14:14)
[2023-11-25] MEDS ORDERED: LOPERAMIDE 2 MG CAP PO PRN (14:14)
[2023-11-25] MEDS ORDERED: BACLOFEN 10 MG TAB PO PRN (14:14)
[2023-11-25] MEDS ORDERED: HYOSCYAMINE SULFATE 0.125 MG TAB PO PRN (14:14)
[2023-11-25] MEDS: LACTATED RINGERS 1,000 ML IV ONE (14:15)
--- NOTE | 2023-11-25 14:30 | P.HPCAR ---
History of Present Illness This is Dr. David dictating an H/P on this patient The patient was interviewed and examined IMPRESSION / ASSESSMENT: Persistent symptomatic atrial fibrillation despite rate control Failed medical treatment Enlarged left atrium Preserved LV systolic function Past history of pulmonary embolism Failed Multaq In addition sick sinus syndrome and junctional rhythm on Multaq PLAN: A-fib ablation Continue anticoagulation HPI Patient continues to remain tired and fatigued ROS: No fever chills or rigors, no cough, phlegm or expectoration, no nausea, vomiting or diarrhea, no hematuria, dysuria, no musculoskeletal complaints, no strokes or seizures, no skin lesions. EXAMINATION: 127/60 mmHg pulse 806 beats a minute afebrile Breath sounds are reduced bilaterally no rhonchi no crackles Heart sounds irregular no murmurs No JVD Trophic changes in the lower extremities in the shins REVIEW OF LABS, ECG & MEDICAL DATA Normal sodium Potassium 3.5 Creatinine 1.07 AST and ALT normal TSH normal at 2.4 Physical Exam Vitals: Vital Signs Temp Pulse Resp BP Pulse Ox 11/25/23 06:50 97.9 F 106 H 18 127/60 97 Intake and Output 11/24/23 11/25/23 11/25/23 22:59 06:59 14:59 Intake Total 20 836 Balance 20 836 Intake: IV 20 836 Other: Weight 112.5 kg Past Medical History Past Medical History: Atrial Fibrillation, Asthma, GERD/Reflux, Hyperlipidemia, Hypertension, Musculoskeletal Disorder, Pulmonary Embolus (PE), Renal Disease, Sleep Apnea/CPAP/BIPAP Additional Past Medical History / Comment(s): urinary incontinence, IBS, heart murmur, back spasms, cyst on liver. kidney stones with blood in urine since 06/27/23, PE caused a pulmonary. reduced kidney function, not using cpap right now. edema to lower legs, SOB w/exertion History of Any Multi-Drug Resistant Organisms: None Reported Past Surgical History: Hernia Repair, Tonsillectomy Additional Past Surgical History / Comment(s): cystoscopy, colonoscopy, umbilical hernia, cystoscopy/lithotripsy w/stent insertion 08-24-23 Past Anesthesia/Blood Transfusion Reactions: No Reported Reaction Additional Past Anesthesia/Blood Transfusion Reaction / Comment(s): no hx blood transfusions Smoking Status: Never smoker - Past Family History Father Family Medical History: CVA/TIA Additional Family Medical History / Comment(s): svt Mother Additional Family Medical History / Comment(s): pulmonary HTN, kidney stones Physical Examination Vital Signs Temp Pulse Resp BP Pulse Ox 11/25/23 06:50 97.9 F 106 H 18 127/60 97 Intake and Output 11/24/23 11/25/23 11/25/23 22:59 06:59 14:59 Intake Total 20 836 Balance 20 836 Intake: IV 20 836 Other: Weight 112.5 kg Results 11/25/23 06:30 Cardiac Enzymes 11/25/23 Range/Units 06:30 AST 24 (14-36) U/L Comprehensive Metabolic Panel 11/25/23 Range/Units 06:30 Sodium 142 (137-145) mmol/L Potassium 3.5 (3.5-5.1) mmol/L Chloride 104 (98-107) mmol/L Carbon Dioxide 30 (22-30) mmol/L BUN 22 H (7-17) mg/dL Creatinine 1.07 H (0.52-1.04) mg/dL Glucose 90 (74-99) mg/dL Calcium 9.3 (8.4-10.2) mg/dL AST 24 (14-36) U/L ALT 18 (4-34) U/L Alkaline Phosphatase 69 (38-126) U/L Total Protein 6.5 (6.3-8.2) g/dL Albumin 4.0 (3.5-5.0) g/dL Current Medications Generic Name Dose Route Start Last Admin Trade Name Freq PRN Reason Stop Dose Admin Alprazolam 0.25 mg 11/25/23 14:14 Alprazolam 0.25 Mg Tab PO 12/25/23 14:15 BID PRN Anxiety Baclofen 10 mg 11/25/23 14:14 Baclofen 10 Mg Tab PO 12/25/23 14:15 TID PRN back spasm Furosemide 40 mg 11/25/23 14:15 Furosemide 40 Mg Tab PO 12/25/23 14:16 Q48H [facility] Hyoscyamine 0.125 mg 11/25/23 14:14 Hyoscyamine Sulfate 0.125 Mg Tab PO 12/25/23 14:15 Q4H PRN abdominal pain Sodium Chloride 1,000 mls @ 20 mls/hr 11/25/23 05:57 11/25/23 06:52 Saline 0.9% IV 12/25/23 05:58 20 mls .Q24H [facility] Administration Lisinopril 20 mg 11/26/23 12:00 Lisinopril 20 Mg Tab PO 12/26/23 12:01 DAILY@1200 [facility] Loperamide HCl 2 mg 11/25/23 14:14 Loperamide 2 Mg Cap PO 12/25/23 14:15 QID PRN ibs Non-Formulary Medication 40 mg 11/26/23 12:00 Citalopram Hydrobromide [Citalopram Hbr] PO 12/26/23 12:01 DAILY@1200 [facility] Non-Formulary Medication 20 mg 11/25/23 21:00 Simvastatin PO 12/25/23 21:01 [facility] Rivaroxaban 20 mg 11/25/23 21:00 Rivaroxaban 20 Mg Tab PO 12/25/23 21:01 [facility] Protocol Intake and Output 11/24/23 11/25/23 11/25/23 22:59 06:59 14:59 Intake Total 20 836 Balance 20 836 Intake: IV 20 836 Other: Weight 112.5 kg 11/25/23 06:30
--- NOTE | 2023-11-25 15:05 | P.EPPROC ---
- EP Procedure Note Electrophysiology Procedure Note: PROCEDURE A. fib ablation with PVI DIAGNOSIS Persistent atrial fibrillation, symptomatic, refractory to therapy RESULT No left atrial appendage mass seen on intracardiac echo, large left atrial appendage Exudative effusion, predominantly at the base of the LV Successful A. fib ablation/pulmonary vein isolation of all veins using cryo- ablation Complete entrance block in all 4 veins confirmed Very large left atrium, very large pulmonary veins No evidence for phrenic nerve injury Esophageal deflection NO, central esophagus and a very large left atrial size Electrical cardioversion with a synchronized shock across the chest YES PROCEDURE DETAILS Written informed consent prior to procedure. Patient brought to the EP lab. General anesthesia given. Heparin administered. A city maintained above 300 seconds Both groins prepped and draped per protocol and venous sheaths placed. Esophagus intubated, circa catheter for temperature monitoring an endoscope for possible esophageal deflection. Phrenic nerve monitoring performed. Esophageal temperature monitoring performed. Esophageal deflection performed if circa catheter overlapping with the balloon or circa temperature less than 27.5C Intracardiac echocardiography performed. Pericardium evaluated. Left atrial appendage evaluated. Left atrium evaluated along with pulmonary veins Transseptal catheterization performed under fluoroscopic guidance and intracardiac echo guidance Cryoablation sheath exchanged, balloon catheter along with achieve catheter placed in the left atrium. Pulmonary veins isolated in the following sequence: Left superior pulmonary vein followed by left inferior pulmonary vein, followed by right inferior pulmonary vein and lastly right superior pulmonary vein. Phrenic nerve stimulation along with capture thresholds within the SVC and right superior pulmonary vein to identify the phrenic nerve proximity to the cryo- balloon. Pulmonary veins isolated and confirmed with entrance and exit block. Phrenic nerve integrity confirmed at the end of the procedure Electrical cardioversion performed for persistence of atrial fibrillation despite successful ablation. Diagnostic catheters for the high right atrium, His bundle, coronary sinus placed. LA and RA pressures recorded RA pressure: 23/14/20 LA pressure: 39/11/24 Diagnostic EP study with coronary sinus pacing and recording Baseline measurements: Sinus bradycardia post cardioversion AH 71, HV 63 QRS 96 ms and QT interval 343 ms Venous sheaths were removed and hemostasis assured with a closure device. Patient extubated and transferred to recovery Increase procedural time Very enlarged left atrium, large pulmonary veins All pulmonary veins required multiple shorter ablations with occlusion of the different tributaries to achieve complete antral isolation around the veins Successful isolation was performed but the right inferior vein, right superior vein, left superior and left inferior veins were all difficult to isolate with a single lesion and required multiple cryoablation lesions for complete antral level isolation PROCEDURES PERFORMED Diagnostic EP study CS pacing and recording Left and right transseptal catheterization Catheter the mapping of the tachycardia Intracardiac echocardiography Pulmonary vein isolation with transseptal and comprehensive EPS, 78339 Extended procedure duration Electrical cardioversion with a synchronized shock across the chest 69131
--- NOTE | 2023-11-25 18:30 | P.PRLE ---
RE: Radha Duenas Dear Abigail Garcia underwent a diagnostic EP study and ablation for paroxysmal atrial fibrillation She has a significantly enlarged left atrium and on intracardiac echo she had evidence of exudative pericarditis LV function was normal She also had an elevated CVP of 20 mmHg consistent with a history of pulmonary hypertension She underwent successful isolation of all pulmonary veins and antral level She will continue anticoagulation as before Her overall success rates for maintenance of sinus rhythm remain low but I would not use any antiarrhythmic drug therapy since she has sinus bradycardia Hence I discontinued metoprolol at this time while she is in sinus rhythm Thank you for entrusting me with the care of the patient Warm regards Sincerely Joaquin David
[2023-11-25] MEDS: RIVAROXABAN 15 MG TAB PO SCH (20:46)
[2023-11-25] MEDS: ATORVASTATIN 10 MG TAB PO SCH (20:46)
[2023-11-26 09:47] LABS: Anisocytosis Slight; Basophils % (A) 0 %; Eosinophils % (A) 0 %; HCT 25.8 % (34.0-46.0); Hypochromasia Marked; Lymphocytes # (A) 1.4 k/uL (1.0-4.8); Lymphocytes % (A) 14 %; MCH 23.9 pg (25.0-35.0); MCHC 29.8 g/dL (31.0-37.0); MCV 80.2 fL (80.0-100.0); Mean Platelet Volume 7.8; Microcytosis Slight; Monocytes # (A) 0.8 k/uL (0-1.0); Monocytes % (A) 8 %; Neutrophils # (A) 7.4 k/uL (1.3-7.7); Neutrophils % (A) 76 %; Platelet Count 269 k/uL (150-450); RBC 3.22 m/uL (3.80-5.40); RDW 17.6 % (11.5-15.5); WBC 9.8 k/uL (3.8-10.6)
[2023-11-26 09:48] LABS: African American GFR (CKD) 23 (>60 ml/min/1.73 sqM); Anion Gap 4 mmol/L; Blood Urea Nitrogen 30 mg/dL (7-17); Calcium 8.4 mg/dL (8.4-10.2); Carbon Dioxide 28 mmol/L (22-30); Chloride 104 mmol/L (98-107); Glucose 105 mg/dL (74-99); HGB 7.7 gm/dL (11.4-16.0); Non-African American GFR(CKD) 20 (>60 ml/min/1.73 sqM); Sodium 136 mmol/L (137-145)
[2023-11-26] MEDS: lisinopriL 20 MG TAB PO SCH (10:23)
[2023-11-26] MEDS: CITALOPRAM HYDROBROMIDE 20 MG TAB PO SCH (12:40)
--- NOTE | 2023-11-26 13:10 | P.PN ---
Subjective Progress Note Date: 11/26/23 History of present illness: This is a 73-year-old female patient of Dr. Dumont. Patient was brought into the hospital due to persistent symptomatic atrial fibrillation despite rate control and underwent atrial fibrillation ablation. Patient is in a sinus rhythm this morning. She states that she thought she was in atrial fibrillation this morning. Patient states that she has trouble transferring herself from the bed and getting out. She does state that she has someone to help her when she gets home. Heart rate is 70s in the 50s. Blood pressure 87/52, pulse ox 93% on room air. Patient was being prepared for discharge home but unfortunately lab work came back abnormal with hemoglobin 7.7. BUN 30 creatinine 2.31. Physical examination: Gen: This is a 73-year-old female in no acute distress VS: reviewed HEENT: Head is atraumatic, normocephalic. Pupils equal, round. Sclerae is anicteric. NECK: Supple. No JVD. LUNGS: Clear to auscultation. No wheezes or rhonchi. No intercostal retractio ns. HEART: Regular rate and rhythm. No murmur. ABDOMEN: Soft No tenderness. EXTREMITIES: No pedal edema. No calf tenderness. NEUROLOGICAL: Patient is awake, alert and oriented x3. Assessment: Acute kidney injury Persistent atrial fibrillation status post A-fib ablation Bilateral atrial enlargement Hypertension Dyslipidemia Peripheral vascular disease History of pulmonary embolism Mild aortic stenosis Plan: Continue Xarelto, atorvastatin Hold Lasix and lisinopril due to acute kidney injury Repeat CBC and BMP tomorrow Further recommendations to follow based upon clinical course Nurse practitioner note has been reviewed, I agree with documented findings and plan of care. Patient was seen and examined. Objective - Vital Signs Vital signs: Vital Signs Temp 98.2 F 11/26/23 04:00 Pulse 47 L 11/26/23 04:00 Resp 19 11/26/23 04:00 BP 96/54 11/26/23 04:00 Pulse Ox 95 11/26/23 04:00 FiO2 Intake & Output 11/25/23 11/26/23 11/26/23 18:59 06:59 18:59 Intake Total 1086 Output Total 300 Balance 1086 -300 Weight 112.5 kg 114.2 kg Intake: IV 1086 Output: Urine 300 Other: Voiding Method Toilet # Voids 0 1 - Labs CBC & Chem 7: 11/26/23 08:45 11/26/23 08:45
[2023-11-26] MEDS: SODIUM CHLORIDE 0.9% 1,000 ML IV SCH (21:28)
[2023-11-27] MEDS ORDERED: FUROSEMIDE 40 MG TAB PO SCH (06:00)
[2023-11-27 09:01] LABS: Anisocytosis Slight; HCT 26.9 % (34.0-46.0); HGB 7.9 gm/dL (11.4-16.0); Hypochromasia Marked; MCH 23.9 pg (25.0-35.0); MCHC 29.4 g/dL (31.0-37.0); MCV 81.3 fL (80.0-100.0); Mean Platelet Volume 7.4; Microcytosis Slight; Platelet Count 280 k/uL (150-450); RDW 17.5 % (11.5-15.5); WBC 8.5 k/uL (3.8-10.6)
[2023-11-27 09:16] LABS: African American GFR (CKD) 19 (>60 ml/min/1.73 sqM); Anion Gap 8 mmol/L; Blood Urea Nitrogen 39 mg/dL (7-17); Calcium 8.5 mg/dL (8.4-10.2); Carbon Dioxide 24 mmol/L (22-30); Chloride 99 mmol/L (98-107); Glucose 118 mg/dL (74-99); Non-African American GFR(CKD) 17 (>60 ml/min/1.73 sqM); Potassium 3.8 mmol/L (3.5-5.1); Sodium 131 mmol/L (137-145)
--- NOTE | 2023-11-27 09:25 | P.PN ---
Subjective Progress Note Date: 11/27/23 Principal diagnosis: Atrial fibrillation The patient is a 73-year-old female patient with a past medical history significant for paroxysmal atrial fibrillation who underwent atrial fibrillation ablation 2 days ago. She was seen yesterday and because her kidney function was worse and the hemoglobin was worse she was kept overnight. November 27, 2023 The patient was seen and evaluated this morning. Her hemoglobin is slightly better but her kidney function is worse and her GFR currently is 17. The pressure has been marginal in spite of stopping the lisinopril and Lasix yester day. I am going to consult nephrology to see the patient. She is clinically asymptomatic. The examination is remarkable for regular rhythm with clear breathing sounds bilaterally and bilateral lower extremities edema noted Assessment Atrial fibrillation status post ablation Marginally low blood pressure Acute on chronic renal failure Anemia Lower extremities edema Plan Avoid any nephrotoxic medications Continue holding lisinopril and Lasix Consult nephrology Further recommendation to follow Objective - Vital Signs Vital signs: Vital Signs Temp 97.7 F 11/27/23 04:00 Pulse 57 L 11/27/23 04:00 Resp 19 11/27/23 04:00 BP 92/51 11/27/23 04:00 Pulse Ox 95 11/27/23 04:00 FiO2 Intake & Output 11/26/23 11/27/23 11/27/23 18:59 06:59 18:59 Intake Total 416 Output Total 400 Balance 416 -400 Weight 117.8 kg Intake: Oral 416 Output: Urine 400 Other: Voiding Method Toilet # Voids 1 2 - Labs CBC & Chem 7: 11/27/23 08:00 11/27/23 08:00 Labs: Abnormal Lab Results - Last 24 Hours (Table) 11/26/23 11/26/23 11/27/23 Range/Units 08:45 08:45 08:00 RBC 3.22 L 3.30 L (3.80-5.40) m/uL Hgb 7.7 L D 7.9 L (11.4-16.0) gm/dL Hct 25.8 L 26.9 L (34.0-46.0) % MCH 23.9 L 23.9 L (25.0-35.0) pg MCHC 29.8 L 29.4 L (31.0-37.0) g/dL RDW 17.6 H 17.5 H (11.5-15.5) % Sodium 136 L (137-145) mmol/L BUN 30 H (7-17) mg/dL Creatinine 2.31 H (0.52-1.04) mg/dL Glucose 105 H (74-99) mg/dL 11/27/23 Range/Units 08:00 RBC (3.80-5.40) m/uL Hgb (11.4-16.0) gm/dL Hct (34.0-46.0) % MCH (25.0-35.0) pg MCHC (31.0-37.0) g/dL RDW (11.5-15.5) % Sodium 131 L (137-145) mmol/L BUN 39 H (7-17) mg/dL Creatinine 2.68 H (0.52-1.04) mg/dL Glucose 118 H (74-99) mg/dL
--- NOTE | 2023-11-27 11:17 | P.NPCON ---
History of Present Illness - Reason for Consult acute renal failure - History of Present Illness Patient is a 73-year-old female who was admitted to the hospital for cardiac ablation for persistent A-fib which failed medical treatment. Cardiac ablation was performed on 11/25/2023 Discharge was held postprocedure as serum creatinine was elevated and hemoglobin was low at 7.7 g/dL. Creatinine increased from 1.0 on 2023-2.3 yesterday and today it is at 2.6. Patient was hypotensive with systolic blood pressure noted in the 80s. Patient was maintained on lisinopril and Lasix which are currently on hold. Patient states she has been voiding. Review of Systems As per HPI Past Medical History Past Medical History: Atrial Fibrillation, Asthma, GERD/Reflux, Hyperlipidemia, Hypertension, Musculoskeletal Disorder, Pulmonary Embolus (PE), Renal Disease, Sleep Apnea/CPAP/BIPAP Additional Past Medical History / Comment(s): urinary incontinence, IBS, heart murmur, back spasms, cyst on liver. kidney stones with blood in urine since 06/27/23, PE caused a pulmonary. reduced kidney function, not using cpap right now. edema to lower legs, SOB w/exertion History of Any Multi-Drug Resistant Organisms: None Reported Past Surgical History: Hernia Repair, Tonsillectomy Additional Past Surgical History / Comment(s): cystoscopy, colonoscopy, umbilical hernia, cystoscopy/lithotripsy w/stent insertion 08-24-23 Past Anesthesia/Blood Transfusion Reactions: No Reported Reaction Additional Past Anesthesia/Blood Transfusion Reaction / Comment(s): no hx blood transfusions Smoking Status: Never smoker - Past Family History Father Family Medical History: CVA/TIA Additional Family Medical History / Comment(s): svt Mother Additional Family Medical History / Comment(s): pulmonary HTN, kidney stones Medications and Allergies Home Medications Medication Instructions Recorded Confirmed Type Baclofen [Lioresal] 10 mg PO TID PRN 02/14/15 11/25/23 History Cholecalciferol [Vitamin D3 (25 5,000 unit PO MOWEFR 02/14/15 11/25/23 History Mcg = 1000 Iu)] Hyoscyamine Sulfate [Levsin] 0.125 mg PO Q4-6H PRN 02/14/15 11/25/23 History Loperamide [Imodium] 1 mg PO QID PRN 02/14/15 11/25/23 History Simvastatin [Zocor] 20 mg PO HS 02/14/15 11/25/23 History oxyBUTYnin chloride [Ditropan] 5 mg PO QID PRN 02/14/15 11/25/23 History Citalopram Hydrobromide 40 mg PO DAILY@1200 08/16/23 11/25/23 History [Citalopram HBr] Furosemide [Lasix] 40 mg PO Q48H 08/16/23 11/25/23 History Pantoprazole [Protonix] 40 mg PO Q48H 08/16/23 11/25/23 History Rivaroxaban [Xarelto] 20 mg PO HS 08/16/23 11/25/23 History lisinopriL [Prinivil] 20 mg PO DAILY@1200 08/16/23 11/25/23 History ALPRAZolam [Xanax] 0.25 mg PO BID PRN 09/15/23 11/25/23 History Allergies Allergy/AdvReac Type Severity Reaction Status Date / Time Sulfa (Sulfonamide Allergy Rash/Hives Verified 11/25/23 06:37 Antibiotics) sulfamethoxazole Allergy Rash/Hives Verified 11/25/23 06:37 [From Bactrim] trimethoprim [From Bactrim] Allergy Rash/Hives Verified 11/25/23 06:37 NSAIDS (Non-Steroidal AdvReac cannot Verified 11/25/23 06:37 Anti-Inflamma take per her DR due to kidney issues pentazocine lactate AdvReac Unknown Verified 11/25/23 06:37 [From Talwin] propoxyphene HCl AdvReac Unknown Verified 11/25/23 06:37 [From Darvon] propoxyphene napsylate AdvReac Unknown Verified 11/25/23 06:37 [From Darvocet-N] Physical Exam Vitals: Vital Signs Temp Pulse Resp BP BP Pulse Ox 11/27/23 08:00 97.7 F 62 20 87/51 90/54 92 L 11/27/23 04:00 97.7 F 57 L 19 92/51 95 11/27/23 02:00 54 L 19 11/27/23 00:00 97.7 F 54 L 19 94/56 93 L 11/26/23 20:00 97.9 F 56 L 19 92/53 96 11/26/23 16:00 18 113/52 92 L 11/26/23 13:55 49 L 11/26/23 12:00 49 L 18 86/45 93 L Intake and Output 11/26/23 11/27/23 11/27/23 22:59 06:59 14:59 Intake Total 180 240 Output Total 400 Balance 180 -400 240 Intake: Oral 180 240 Output: Urine 400 Other: Voiding Method Toilet Toilet Toilet # Voids 1 2 Weight 117.8 kg Patient is awake, comfortable, no acute distress Alert oriented x 3 Examination of the heart S1 and S2 Examination of the lungs shows bilateral breath sounds are heard no crackles or wheezing is heard Abdomen is soft obese nontender Examination of lower extremity shows no evidence of edema WIRE TRANSFER CLERK exam grossly intact. Results - Lab Results Most recent lab results Calcium 8.5 mg/dL (8.4-10.2) 11/27/23 08:00 11/27/23 08:00 11/27/23 08:00 Assessment and Plan Assessment: 1. Acute kidney injury, ATN currently nonoliguric secondary to hypotension in the setting of use of ANIA inhibitor's. Patient is currently maintained on IV fluids. Check UA and rule out urine retention. 2. Anemia rule out iron deficiency. No active bleeding noted 3. Chronic A-fib status postcardiac ablation on 11/25/2023 4. Benign hypertension, currently with low blood pressure. ANIA inhibitors and diuretics on hold Plan: Continue IV fluids Check postvoid bladder scan Hold discharge Repeat labs in a.m. Continue to hold ANIA inhibitors and diuretics Check UA Thank you for the consultation. We will continue to follow the patient with you during her hospitalization.
[2023-11-27 12:21] LABS: Appearance,Urine Clear (Clear); Bilirubin,Urine Negative (Negative); Blood,Urine Negative (Negative); Color,Urine Colorless; Glucose,Urine (UA) Negative (Negative); Ketones,Urine Negative (Negative); Leukocyte Esterase,Urine Negative (Negative); Nitrite,Urine Negative (Negative); Protein,Urine Negative (Negative); Urobilinogen,Urine <2.0 mg/dL (<2.0)
--- NOTE | 2023-11-27 15:15 | US ---
EXAMINATION TYPE: US kidneys/renal and bladder DATE OF EXAM: 11/27/2023 COMPARISON: 03/10/2023. CLINICAL INDICATION: Female, 73 years old with history of JAMES; Abnormal labs. Hx renal stones with s urgical removal. EXAM MEASUREMENTS: Right Kidney: 9.0 x 4.8 x 5.3 cm Left Kidney: 7.3 x 3.8 x 4.5 cm Right Kidney: No hydronephrosis or masses seen Left Kidney: Limited visualization, appears small in size compared to contralateral kidney. Echogeni c. Bladder: Distended Bilateral Jets not seen There is no evidence for hydronephrosis at this point in time. No nephrolithiasis is seen. No oswaldo s are identified. The urinary bladder is anechoic. Bilateral ureteral jets are seen. IMPRESSION: 1. No obstructive uropathy. 2. Atrophic left kidney. Similar to 03/10/[address] CT. 3. Nonobstructing calculi bilaterally better appreciated on CT
[2023-11-27] MEDS: ACETAMINOPHEN TAB 325 MG TAB PO PRN (15:36)
[2023-11-27] MEDS: CITALOPRAM HYDROBROMIDE 20 MG TAB PO SCH (21:32)
[2023-11-27 23:00] VITALS: RESP 18
[2023-11-28 10:00] LABS: Anisocytosis Slight; HCT 26.3 % (34.0-46.0); HGB 8.1 gm/dL (11.4-16.0); Hypochromasia Marked; MCH 24.7 pg (25.0-35.0); MCHC 30.7 g/dL (31.0-37.0); MCV 80.4 fL (80.0-100.0); Mean Platelet Volume 7.2; Microcytosis Slight; Platelet Count 284 k/uL (150-450); RBC 3.27 m/uL (3.80-5.40); RDW 17.6 % (11.5-15.5); WBC 7.5 k/uL (3.8-10.6)
[2023-11-28 10:06] VITALS: BP 103/61; PULSE 60; TEMP 97.9
[2023-11-28 10:21] LABS: African American GFR (CKD) 36 (>60 ml/min/1.73 sqM); Anion Gap 9 mmol/L; Blood Urea Nitrogen 35 mg/dL (7-17); Carbon Dioxide 25 mmol/L (22-30); Chloride 101 mmol/L (98-107); Glucose 101 mg/dL (74-99); Non-African American GFR(CKD) 31 (>60 ml/min/1.73 sqM); Potassium 4.2 mmol/L (3.5-5.1); Sodium 135 mmol/L (137-145)
--- NOTE | 2023-11-28 11:04 | P.PN ---
Subjective Patient is seen for follow-up for acute kidney injury, mostly associated with hypotension. Serum creatinine decreased to 1.6 today. Clem inhibitors and diuretics were held and patient was started on normal saline at 50 mL an hour. Patient is complaining of increased lower extremity swelling. No complaints of shortness of breath. Objective - Vital Signs Vital signs: Vital Signs Temp 97.9 F 11/28/23 09:46 Pulse 60 11/28/23 09:46 Resp 18 11/28/23 09:46 BP 103/61 11/28/23 09:46 Pulse Ox 98 11/28/23 09:46 FiO2 Intake & Output 11/27/23 11/28/23 11/28/23 18:59 06:59 18:59 Intake Total 1496 240 Output Total 200 1700 500 Balance 1296 -1700 -260 Weight 120.1 kg Intake: Oral 1496 240 Output: Urine 200 1700 500 Other: Voiding Method Toilet Toilet Toilet # Voids 3 3 3 - Exam Patient is awake, comfortable, no acute distress Alert oriented x 3 Examination of the heart S1 and S2 Examination of the lungs shows bilateral breath sounds are heard no crackles or wheezing is heard Abdomen is soft obese nontender Examination of lower extremity shows 2+ edema OPERATIONS INSPECTOR exam grossly intact. - Labs CBC & Chem 7: 11/28/23 09:23 11/28/23 09:29 Labs: Abnormal Lab Results - Last 24 Hours (Table) 11/28/23 11/28/23 Range/Units 09:23 09:29 RBC 3.27 L (3.80-5.40) m/uL Hgb 8.1 L (11.4-16.0) gm/dL Hct 26.3 L (34.0-46.0) % MCH 24.7 L (25.0-35.0) pg MCHC 30.7 L (31.0-37.0) g/dL RDW 17.6 H (11.5-15.5) % Sodium 135 L (137-145) mmol/L BUN 35 H (7-17) mg/dL Creatinine 1.61 H (0.52-1.04) mg/dL Glucose 101 H (74-99) mg/dL Assessment and Plan Assessment: 1. Acute kidney injury, ATN currently nonoliguric secondary to hypotension in the setting of use of CLEM inhibitor's. Patient is currently maintained on IV fluids. UA is completely benign. Ultrasound shows mildly atrophic left kidney at 7.3 cm. No obstructive uropathy. 2. Anemia rule out iron deficiency. No active bleeding noted 3. Chronic A-fib status postcardiac ablation on 11/25/2023 4. Benign hypertension, currently with low blood pressure. CLEM inhibitors and diuretics on hold Plan: DC IV fluids Lasix IV 1 Continue to hold CLEM inhibitor's post discharge Follow-up as outpatient with nephrology in 1-2 weeks. Patient can resume Lasix upon discharge at 40 mg daily.
[2023-11-28] MEDS: FUROSEMIDE 10 MG/ML 2 ML VIAL IV ONE (12:20)
--- NOTE | 2023-11-28 17:38 | P.DS ---
Providers Date of admission: 11/26/23 14:08 Attending physician: Joaquin David Consults: 11/27/23 09:21 Consult Physician Routine Consulting Provider: Yordan Tuttle Consult Reason/Comments: JAMES Do you want consulting provider notified?: Yes Primary care physician: [facility] Course: The patient is a pleasant 73-year-old female patient who underwent atrial fibrillation ablation by Dr. David 2 days ago. The patient subsequently went into acute on chronic renal failure.. She was receiving Lasix which was held. Nephrology consulted to see the patient. She was watched for the next few days. She was seen and evaluated this morning. Her hemoglobin has improved and her kidney function has improved. The patient is going to be discharged home later on today to follow-up with Dr. Dumont and she will be on oral anticoagulation. Please note that the right groin is soft and nontender with no bruises. Plan - Discharge Summary Discharge Rx Participant: Yes New Discharge Prescriptions: Continue Loperamide [Imodium] 1 mg PO QID PRN PRN Reason: ibs Cholecalciferol [Vitamin D3 (25 Mcg = 1000 Iu)] 5,000 unit PO MOWEFR Baclofen [Lioresal] 10 mg PO TID PRN PRN Reason: back spasm Simvastatin [Zocor] 20 mg PO HS oxyBUTYnin chloride [Ditropan] 5 mg PO QID PRN PRN Reason: urinary incontinece Hyoscyamine Sulfate [Levsin] 0.125 mg PO Q4-6H PRN PRN Reason: abdominal pain Pantoprazole [Protonix] 40 mg PO Q48H Furosemide [Lasix] 40 mg PO Q48H lisinopriL [Prinivil] 20 mg PO DAILY@1200 Citalopram Hydrobromide [Citalopram HBr] 40 mg PO DAILY@1200 ALPRAZolam [Xanax] 0.25 mg PO BID PRN PRN Reason: Anxiety Rivaroxaban [Xarelto] 20 mg PO HS Discontinued Metoprolol Tartrate [Lopressor] 25 mg PO BID Discharge Medication List Baclofen [Lioresal] 10 mg PO TID PRN 02/14/15 [History] Cholecalciferol [Vitamin D3 (25 Mcg = 1000 Iu)] 5,000 unit PO MOWEFR 05/21/15 [History] Hyoscyamine Sulfate [Levsin] 0.125 mg PO Q4-6H PRN 02/14/15 [History] Loperamide [Imodium] 1 mg PO QID PRN 02/14/15 [History] Simvastatin [Zocor] 20 mg PO HS 02/14/15 [History] oxyBUTYnin chloride [Ditropan] 5 mg PO QID PRN 02/14/15 [History] Citalopram Hydrobromide [Citalopram HBr] 40 mg PO DAILY@1200 08/16/23 [History] Furosemide [Lasix] 40 mg PO Q48H 08/16/23 [History] Pantoprazole [Protonix] 40 mg PO Q48H 08/16/23 [History] Rivaroxaban [Xarelto] 20 mg PO HS 08/16/23 [History] lisinopriL [Prinivil] 20 mg PO DAILY@1200 08/16/23 [History] ALPRAZolam [Xanax] 0.25 mg PO BID PRN 09/15/23 [History] Follow up Appointment(s)/Referral(s): Alisa Arevalo MD [STAFF PHYSICIAN] - 1 Week Renée Dumont MD [STAFF PHYSICIAN] - 1 Week Activity/Diet/Wound Care/Special Instructions: Post EP study - Ablation instructions 1. Keep access sites dry for 2 days. 2. No heavy lifting or straining for 2 days. 3. Avoid bending the hips repeatedly for 2 days. 4. You may go up and down stairs slowly Call if the following is noted 1. Bleeding, increasing swelling or pain at the access sites. 2. Increasing chest discomfort, especially upon taking a deep breath. 3. Increasing shortness of breath, at rest or with exertion. 4. Undue cough / phlegm 5. Difficulty or pain while swallowing. 6. Pain or change in color in the extremities. 7. Fever, chills, rigors. 8. Increasing headache or neurologic symptoms. 9. Dizziness, fainting, palpitations Stop metoprolol Continue anticoagulation Discharge Disposition: HOME SELF-CARE
--- NOTE | 2023-11-30 19:18 | CDI ---
Documentation Clarification Form Date: 11/30/2023 07:07:16 PM From: Erendira Lopez Phone: Admit Date: 11/26/2023 02:08:00 PM Patient Name: Radha Duenas Visit Number: [id number] Discharge Date: 11/28/2023 03:27:00 PM ATTENTION: The Clinical Documentation Specialists (CDI) and [facility] Coding Staff appreciate your assistance in clarifying documentation. Please respond to the clarification below the line at the bottom and electronically sign. The CDI & [facility] Coding staff will review the response and follow-up if needed. Please note: Queries are made part of the Legal Health Record. If you have any questions, please contact the author of this message via ITS. Dr. Alisa Arevalo Unspecified CKD is documented per Progress Note 3/2. Additional clarification regarding the stage of CKD is requested. History/Risk Factors: 73yo F, Persistent A fib, ATN, CKD w anemia, HTN w hypoTN, SSS, PVD, PHTN, HLD, Clinical Indicators: BUN: 11/25 30 11/26 39 11/27 35 Cr: 11/25 2.31 11/26 2.68 11/27 1.61 AfAm GFR: 11/25 23 11/26 19 11/27 36 Non AfAm: 11/25 20 11/26 17 11/27 31 Treatment: he was receiving Lasix which was held. Nephrology consulted to see the patient. She was watched for the next few days. She was seen and evaluated this morning. Hgb has improved and kidney function has improved. Please clarify the stage of the CKD, if known: [ ] CKD Stage 3b [ ] CKD Stage 4 [ x] Other, please specify Only JAMES, No CKD [ ] Unable to determine Reference: National Kidney Foundation Stage 1 eGFR = 90 and kidney damage for =3 months Stage 2 eGFR 60-89 and kidney damage for =3 months Stage 3a eGFR 45-59 and kidney damage for =3 months Stage 3b eGFR 30-44 and kidney damage for =3 months Stage 4 eGFR 15-29 r and kidney damage for =3 months Stage 5 eGFR <15 and kidney damage for =3 months (Template last revised: September 2023) MTDD
== END 2023-11-28 15:27 | disposition home or self-care (01) | DRG 270 ==
LOC: CATHEP 06:16 → 3SCARD 13:55 → CATHEP 11-26 14:08
PROVIDERS: ADMIT Internal Medicine Clinical Cardiac Electrophysiology; ATTEND Internal Medicine Clinical Cardiac Electrophysiology
PROC: 025 Heart and Great Vessels, Destruction (ICD-10-PCS; 2023-11-25)
PROC: 5A2204Z Restoration of Cardiac Rhythm, Single (ICD-10-PCS; 2023-11-25)
PROC: B24BZZZ Ultrasonography of Heart with Aorta (ICD-10-PCS; 2023-11-25)
PROC: 02583ZZ Destruction of Conduction Mechanism, Percutaneous Approach (ICD-10-PCS; 2023-11-25)
PROC: 4A023FZ Measurement of Cardiac Rhythm, Percutaneous Approach (ICD-10-PCS; 2023-11-25)
PROC: 025 Heart and Great Vessels, Destruction (ICD-10-PCS; principal; 2023-11-25 07:15)
DX: I48.19 Other persistent atrial fibrillation (principal); N17.0 Acute kidney failure with tubular necrosis; I31.9 Disease of pericardium, unspecified; I27.20 Pulmonary hypertension, unspecified; I49.5 Sick sinus syndrome; I73.9 Peripheral vascular disease, unspecified; I95.9 Hypotension, unspecified; I11.9 Hypertensive heart disease without heart failure; J45.909 Unspecified asthma, uncomplicated; I35.0 Nonrheumatic aortic (valve) stenosis; G47.30 Sleep apnea, unspecified; E78.5 Hyperlipidemia, unspecified; R32 Unspecified urinary incontinence; T44.5X5A Adverse effect of predominantly beta-adrenoreceptor agonists, initial encounter; N26.1 Atrophy of kidney (terminal); F41.9 Anxiety disorder, unspecified; D64.9 Anemia, unspecified; M79.89 Other specified soft tissue disorders; Z79.01 Long term (current) use of anticoagulants; Z86.711 Personal history of pulmonary embolism; Z82.49 Family history of ischemic heart disease and other diseases of the circulatory system; Z28.311 Partially vaccinated for COVID-19; Z79.899 Other long term (current) drug therapy
CPT/HCPCS: 76770; 80048; 80053; 81003; 84443; 85025; 85027; 86850; 86900; 86901; 93656

== ENCOUNTER → 2024-01-17 | Outpatient (CLI) | payer MEDICARE ==
[2024-01-17 19:25] LABS: BUN/Creat Ratio 10.75 Ratio (12.00-20.00); Blood Urea Nitrogen 17.2 mg/dL (9.0-27.0); Calcium 10.1 mg/dL (8.7-10.3); Carbon Dioxide 23.1 mmol/L (21.6-31.8); Chloride 99 mmol/L (96-109); Glucose 117 mg/dL (70-110); Potassium 3.8 mmol/L (3.5-5.5); Sodium 138 mmol/L (135-145)
== END | disposition home or self-care (01) ==
LOC: LABWHC1 14:56
PROVIDERS: ATTEND Internal Medicine
DX: I12.9 Hypertensive chronic kidney disease with stage 1 through stage 4 chronic kidney disease, or unspecified chronic kidney disease (principal); N18.30 Chronic kidney disease, stage 3 unspecified
CPT/HCPCS: 36415; 80048

== ENCOUNTER → 2024-01-26 | Day surgery (SDC) | payer MEDICARE | LOC: RADUSWWP 12:45 | PROVIDERS: ATTEND Surgery | DX: N60.11 Diffuse cystic mastopathy of right breast (principal) | CPT/HCPCS: 88305; 77065; 19083; A4648 ==

== ENCOUNTER → 2024-01-26 | Outpatient (CLI) | payer MEDICARE ==
[2024-01-26 18:59] LABS: HCT 34.7 % (37.2-46.3); HGB 10.1 g/dL (12.0-15.0); MCH 22.9 pg (27.0-32.0); MCHC 29.1 g/dL (32.0-37.0); MCV 78.7 FL (80.0-97.0); Mean Platelet Volume 9.3 FL (9.5-12.2); NRBC Per 100 WBC 0 X 10*3/uL (0.00-0.01); Platelet Count 309 X 10*3/uL (140-440); RBC 4.41 X 10*6/uL (4.10-5.20); RDW 18.1 % (11.5-14.5); WBC 6.33 X 10*3/uL (4.50-10.00)
[2024-01-26 19:54] LABS: % Iron Saturation 10.23 (12.00-45.00); ALT 10 U/L (8-44); AST 15 U/L (13-35); Albumin 4.1 g/dL (3.8-4.9); Albumin/Globulin Ratio 1.86 Ratio (1.60-3.17); Alkaline Phosphatase 63 U/L (41-126); BUN/Creat Ratio 13.36 Ratio (12.00-20.00); Blood Urea Nitrogen 18.7 mg/dL (9.0-27.0); Calcium 9.6 mg/dL (8.7-10.3); Carbon Dioxide 27.7 mmol/L (21.6-31.8); Chloride 101 mmol/L (96-109); Ferritin 33.9 ng/mL (10.0-291.0); Globulin 2.2 g/dL (1.6-3.3); Glucose 95 mg/dL (70-110); Iron 40 UG/DL (50-170); Magnesium 1.9 mg/dL (1.5-2.4); Phosphorus 3.4 mg/dL (2.4-5.1); Sodium 140 mmol/L (135-145); Total Bilirubin 0.3 mg/dL (0.3-1.2); Total Iron Binding Capacity 391 UG/DL (228-460); Total Protein 6.3 g/dL (6.2-8.2); Uric Acid 8.2 mg/dL (2.9-7.7)
[2024-01-26 20:02] LABS: Appearance,Urine Cloudy (Clear); Bilirubin,Urine Negative (Negative); Blood,Urine Negative (Negative); Color,Urine Yellow (Yellow); Ketones,Urine Trace (Negative); Nitrite,Urine Negative (Negative); Specific Gravity,Urine 1.015 (1.001-1.030); Urobilinogen,Urine 0.2 E.U./DL
[2024-01-26 20:44] LABS: Bacteria,Urine Trace (None Seen); Calcium Oxalate Crystals,Urine Present (None Seen)
== END | disposition home or self-care (01) ==
LOC: LABWHC1 14:27
PROVIDERS: ATTEND Internal Medicine
DX: N25.81 Secondary hyperparathyroidism of renal origin (principal); N18.32 Chronic kidney disease, stage 3b; D63.1 Anemia in chronic kidney disease; N39.0 Urinary tract infection, site not specified; E55.9 Vitamin D deficiency, unspecified; M10.9 Gout, unspecified; R80.9 Proteinuria, unspecified
CPT/HCPCS: 36415; 80053; 81001; 82043; 82306; 82570; 82728; 83540; 83550; 83735; 83883; 83970; 84100; 84166; 84550; 85027; 86334

== ENCOUNTER → 2024-02-04 | Outpatient (CLI) | payer MEDICARE ==
--- NOTE | 2024-02-04 11:17 | P.GSCN ---
History of Present Illness Consult date: 02/04/24 Reason for Consult: ultrrasound core biopsy of the right breast Requesting physician: Joe Kay History of present illness: Radha is a 73-year-old female seen in consultation regarding a right breast ultrasound-guided core biopsy. She underwent a bilateral mammogram at [facility] on 01-04-2023. This was considered BI-RADS 0 and an ultrasound of the right breast was recommended. This revealed a 9 mm lesion in the right breast felt to be probably benign and short interval follow-up in 6 months recommended. At that time she also had a diagnostic mammogram of the right breast. A repeat right breast ultrasound and diagnostic mammogram were performed on 08-12-2023. This revealed an enlarging right breast mass at the 9 o'clock position of the right breast. BI-RADS 4 and ultrasound core biopsy recommended. An ultrasound core biopsy of this area was performed on 01-26-2024. This was benign breast with fibrocystic changes including microcalcifications. Final report is not available from the radiologist on this. She is not complaining of any lumps, masses or nodules in her breast. She has not had any surgery on her breast. No nipple discharge or changes of concern. No recent infection or trauma to her breast. caffeine: none nicotine:none chocolate: stopped BCP: 5 years hormones: less than 1 year at menopause Family History: maternal grandmother: female cancer ? type sister: skin cancer, melanoma father: skin cancer Hormonal History: menarche: 10 G0 menopause: 50 hormones: < 1 year Surgical History: 2 colonoscopies umbilical hernia tonsil bilateral kidney stones cardioversion/atrial fib/ablation Medical History: pulmonary infarct pulmonary embolism xeralto IBS HTN GERD kidney stones stage 3 kidney failure Social History: Nicotine: Negative Alcohol stopped use to drink glass of wine at night drugs: none Review of Systems - Constitutional Denies fever, Denies weight loss - EENT Eyes: denies blurred vision Ears: bilateral: decreased hearing Ears, nose, mouth and throat: Denies dysphagia - Breasts bilateral: as per HPI - Cardiovascular Reports as per HPI - Respiratory Reports as per HPI - Gastrointestinal Reports as per HPI - Genitourinary Genitourinary: Reports hematuria Menstruation: Reports postmenopausal - Musculoskeletal Reports as per HPI - Integumentary Integumentary Comment(s): xeralto Reports unusual bruising - Neurological Denies headaches, Denies syncope - Psychiatric Reports anxiety - Endocrine Reports weight change - Hematologic/Lymphatic Reports as per HPI Hematologic/Lymphatic Comment(s): xeralto - Allergic/Immunologic Reports as per HPI Past Medical History Past Medical History: Atrial Fibrillation, Asthma, GERD/Reflux, Hyperlipidemia, Hypertension, Musculoskeletal Disorder, Pulmonary Embolus (PE), Renal Disease, Sleep Apnea/CPAP/BIPAP Additional Past Medical History / Comment(s): urinary incontinence, IBS, heart murmur, back spasms, cyst on liver. kidney stones with blood in urine since 06/27/23, PE caused a pulmonary. reduced kidney function, not using cpap right now. edema to lower legs, SOB w/exertion. Stage 3b kidney failure dx 2023 History of Any Multi-Drug Resistant Organisms: None Reported Past Surgical History: Hernia Repair, Tonsillectomy Additional Past Surgical History / Comment(s): cystoscopy, colonoscopy, umbilical hernia, cystoscopy/lithotripsy w/stent insertion 08-24-23 Past Anesthesia/Blood Transfusion Reactions: No Reported Reaction Additional Past Anesthesia/Blood Transfusion Reaction / Comm: no hx blood transfusions Past Psychological History: Anxiety Smoking Status: Never smoker Past Alcohol Use History: None Reported Past Drug Use History: None Reported - Past Family History Father Family Medical History: CVA/TIA Additional Family Medical History / Comment(s): svt Mother Additional Family Medical History / Comment(s): pulmonary HTN, kidney stones Medications and Allergies Home Medications Medication Instructions Recorded Confirmed Type Baclofen [Lioresal] 10 mg PO TID PRN 02/14/15 02/04/24 History Cholecalciferol [Vitamin D3 (25 5,000 unit PO MOWEFR 02/14/15 02/04/24 History Mcg = 1000 Iu)] Hyoscyamine Sulfate [Levsin] 0.125 mg PO Q4-6H PRN 02/14/15 02/04/24 History Loperamide [Imodium] 1 mg PO QID PRN 02/14/15 02/04/24 History Simvastatin [Zocor] 20 mg PO HS 02/14/15 02/04/24 History oxyBUTYnin chloride [Ditropan] 5 mg PO QID PRN 02/14/15 02/04/24 History Citalopram Hydrobromide 40 mg PO DAILY@1200 11/20/23 05/10/24 History [Citalopram HBr] Furosemide [Lasix] 40 mg PO DAILY 08/16/23 02/04/24 History Pantoprazole [Protonix] 40 mg PO Q48H 08/16/23 02/04/24 History Rivaroxaban [Xarelto] 20 mg PO HS 08/16/23 02/04/24 History lisinopriL [Prinivil] 5 mg PO DAILY@1200 08/16/23 02/04/24 History ALPRAZolam [Xanax] 0.25 mg PO DAILY PRN 09/15/23 02/04/24 History Levalbuterol Hfa Inhaler [Xopenex 2 puff INHALATION Q6HR PRN 01/12/24 02/04/24 History Hfa Inhaler] Midodrine [ProAmatine] 5 mg PO TID 01/12/24 02/04/24 History Allergies Allergy/AdvReac Type Severity Reaction Status Date / Time Sulfa (Sulfonamide Allergy Rash/Hives Verified 02/04/24 10:50 Antibiotics) sulfamethoxazole Allergy Rash/Hives Verified 02/04/24 10:50 [From Bactrim] trimethoprim [From Bactrim] Allergy Rash/Hives Verified 02/04/24 10:50 NSAIDS (Non-Steroidal AdvReac cannot Verified 02/04/24 10:50 Anti-Inflamma take per her DR due to kidney issues pentazocine lactate AdvReac Unknown Verified 02/04/24 10:50 [From Talwin] propoxyphene HCl AdvReac Unknown Verified 02/04/24 10:50 [From Darvon] propoxyphene napsylate AdvReac Unknown Verified 02/04/24 10:50 [From Darvocet-N] Surgical - Exam Vital Signs Temp Pulse Resp BP Pulse Ox 97.8 F 65 15 95/60 99 02/04/24 10:51 02/04/24 10:51 02/04/24 10:51 02/04/24 10:51 02/04/24 10:51 - General no distress - Eyes normal ocular movement - Neck trachea midline - Respiratory normal respiratory effort, clear to auscultation - Cardiovascular Heart Sounds: normal: S1, S2 - Abdomen Abdomen: soft, non tender, no guarding, no rigid, no rebound - Integumentary normal turgor - Musculoskeletal uses a walker - Psychiatric oriented to time, oriented to person, oriented to place, speech is normal, memory intact Breast Exam: BRA: 48D inspection: bilateral grade 3 ptosis palpation: right breast: Examination performed with the patient sitting up, no dominant masses or nodules of concern, mild ecchymosis at biopsy site Right axilla: No adenopathy of concern Left breast: Examination performed with patient sitting up, no dominant masses or nodules of concern Left axilla: No adenopathy of concern Results Mammogram and ultrasound from 01-26-2024 personally reviewed It appears that the biopsy is benign concordant, we are awaiting confirmation from the radiologist Assessment and Plan Assessment: Impression: Benign concordant right breast ultrasound-guided core biopsy on 01-26-2024, we are waiting final report from the radiologist Patient is due for a left breast mammogram Repeat right breast mammogram and ultrasound in 6 months Plan: Left breast mammogram Right breast mammogram and ultrasound in 6 months Await final report from radiologist regarding concordance Medical management of medical conditions CC: Dr. Kay
[2024-02-04 11:29] VITALS: BP 95/60; PULSE 65; RESP 15; TEMP 97.8
--- NOTE | 2024-02-04 12:01 | MM ---
Reason for Exam: Additional evaluation requested from abnormal screening. Last screening mammogram was performed 6 month(s) ago. Patient History: Menarche at age 10. Postmenopausal. Risk Values: Jacqueline 5 year model risk: 1.3%. NCI Lifetime model risk: 2.8%. Prior Study Comparison: 01/04/2023 Bilateral Diagnostic Mammogram, Unknown. 08/12/2023 Right Diagnostic Mammogram, Unknown. Tissue Density: Left: There are scattered areas of fibroglandular density. Findings: Analyzed By CAD. No significant change from prior exams. Overall Assessment: Probably benign, BI-RAD 3 Management: Diagnostic Mammogram of the right breast in 1 month. In order to reassess after clearing of postbiopsy changes. If the position of the clip is separate from the intended mammographic abnormality, an second look ultrasound versus stereotactic core needle biopsy of the right breast may be needed. Results were given to the patient verbally at the time of exam. Patient should continue monthly self-breast exams. A clinical breast exam by your physician is recommended on an annual basis. This exam should not preclude additional follow-up of suspicious palpable abnormalities. Note on Jacqueline scores and lifetime risk: 1. A Jacqueline score greater than 3% is considered moderate risk. If this is the case, consider specialist referral to assess eligibility for a risk reducing agent. 2. If overall lifetime risk for the development of breast cancer is 20% or higher, the patient may qualify for future screening with alternating mammogram and breast MRI. Electronically signed and approved by: Carline Mosquera M.D. Radiologist
== END ==
LOC: WWCWWP 09:59
PROVIDERS: ATTEND Surgery
DX: R92.8 Other abnormal and inconclusive findings on diagnostic imaging of breast (principal); N63.15 Unspecified lump in the right breast, overlapping quadrants; Z78.0 Asymptomatic menopausal state; Z88.2 Allergy status to sulfonamides; Z88.1 Allergy status to other antibiotic agents; Z88.8 Allergy status to other drugs, medicaments and biological substances; Z88.6 Allergy status to analgesic agent
CPT/HCPCS: 77065; G0279; 77061

== ENCOUNTER → 2024-03-06 | Outpatient (CLI) | payer MEDICARE ==
--- NOTE | 2024-03-07 10:58 | MM ---
Reason for Exam: Follow-up at short interval from prior study. Last screening mammogram was performed 7 month(s) ago. Patient History: Menarche at age 10. Postmenopausal. 01/26/2024, Benign US biopsy breast VAD RT on the right side. Risk Values: Jacqueline 5 year model risk: 1.5%. NCI Lifetime model risk: 3.3%. Prior Study Comparison: 08/12/2023 Right Diagnostic Mammogram, Unknown. 01/26/2024 Right MG diagnostic mammo RT wo CAD, [facility]. 02/04/2024 Left MG 3D diag mammo w/cad LT, [facility]. Tissue Density: Right: The breasts are heterogeneously dense, which may obscure small masses. Findings: Analyzed By CAD. Biopsy clip appears to correspond to the appropriate biopsy site. No new masses seen. No suspicious calcifications. Overall Assessment: Benign, BI-RAD 2 Management: Screening Mammogram of both breasts in 1 year. . Results were given to the patient verbally at the time of exam. Patient should continue monthly self-breast exams. A clinical breast exam by your physician is recommended on an annual basis. This exam should not preclude additional follow-up of suspicious palpable abnormalities. Note on Jacqueline scores and lifetime risk: 1. A Jacqueline score greater than 3% is considered moderate risk. If this is the case, consider specialist referral to assess eligibility for a risk reducing agent. 2. If overall lifetime risk for the development of breast cancer is 20% or higher, the patient may qualify for future screening with alternating mammogram and breast MRI. Electronically signed and approved by: Misael Mcclure M.D. Radiologis
== END | disposition home or self-care (01) ==
LOC: RADMAMWWP 13:13
PROVIDERS: ATTEND Surgery
DX: R92.331 Mammographic heterogeneous density, right breast (principal); R92.8 Other abnormal and inconclusive findings on diagnostic imaging of breast; Z78.0 Asymptomatic menopausal state
CPT/HCPCS: 77065; G0279; 77061

== ENCOUNTER → 2024-03-09 | Outpatient (CLI) | payer MEDICARE ==
--- NOTE | 2024-03-09 15:35 | P.PN ---
Subjective Progress Note Date: 03/09/24 History of Present Illness Consult date: 02/04/24 Reason for Consult: ultrrasound core biopsy of the right breast Requesting physician: Joe Kay History of present illness: Radha is a 73-year-old female seen in consultation regarding a right breast ultrasound-guided core biopsy. She underwent a bilateral mammogram at [facility] on 01-04-2023. This was considered BI-RADS 0 and an ultrasound of the right breast was recommended. This revealed a 9 mm lesion in the right breast felt to be probably benign and short interval follow-up in 6 months recommended. At that time she also had a diagnostic mammogram of the right breast. A repeat right breast ultrasound and diagnostic mammogram were performed on 08-12-2023. This revealed an enlarging right breast mass at the 9 o'clock position of the right breast. BI-RADS 4 and ultrasound core biopsy recommended. An ultrasound core biopsy of this area was performed on 01-26-2024. This was benign breast with fibrocystic changes including microcalcifications. Final report is not available from the radiologist on this. She is not complaining of any lumps, masses or nodules in her breast. She has not had any surgery on her breast. No nipple discharge or changes of concern. No recent infection or trauma to her breast. 03-09-24 The patient had had a right breast diagnostic mammogram on 03-06-24 which was BIRAD 2 a left breast mammogram was done on 02-04-24 which did not show any areas of concern She is not complaining of any areas of concern in either breast caffeine: none nicotine:none chocolate: stopped BCP: 5 years hormones: less than 1 year at menopause Family History: maternal grandmother: female cancer ? type sister: skin cancer, melanoma father: skin cancer Hormonal History: menarche: 10 G0 menopause: 50 hormones: < 1 year Surgical History: 2 colonoscopies umbilical hernia tonsil bilateral kidney stones cardioversion/atrial fib/ablation Medical History: pulmonary infarct pulmonary embolism xeralto IBS HTN GERD kidney stones stage 3 kidney failure Social History: Nicotine: Negative Alcohol stopped use to drink glass of wine at night drugs: none Review of Systems - Constitutional Denies fever, Denies weight loss - EENT Eyes: denies blurred vision Ears: bilateral: decreased hearing Ears, nose, mouth and throat: Denies dysphagia - Breasts bilateral: as per HPI - Cardiovascular Reports as per HPI - Respiratory Reports as per HPI - Gastrointestinal Reports as per HPI - Genitourinary Genitourinary: Reports hematuria Menstruation: Reports postmenopausal - Musculoskeletal Reports as per HPI - Integumentary Integumentary Comment(s): xeralto Reports unusual bruising - Neurological Denies headaches, Denies syncope - Psychiatric Reports anxiety - Endocrine Reports weight change - Hematologic/Lymphatic Reports as per HPI Hematologic/Lymphatic Comment(s): xeralto - Allergic/Immunologic Reports as per HPI Past Medical History Past Medical History: Atrial Fibrillation, Asthma, GERD/Reflux, Hyperlipidemia, Hypertension, Musculoskeletal Disorder, Pulmonary Embolus (PE), Renal Disease, Sleep Apnea/CPAP/BIPAP Additional Past Medical History / Comment(s): urinary incontinence, IBS, heart murmur, back spasms, cyst on liver. kidney stones with blood in urine since 06/27/23, PE caused a pulmonary. reduced kidney function, not using cpap right now. edema to lower legs, SOB w/exertion. Stage 3b kidney failure dx 2023 History of Any Multi-Drug Resistant Organisms: None Reported Past Surgical History: Hernia Repair, Tonsillectomy Additional Past Surgical History / Comment(s): cystoscopy, colonoscopy, umbilical hernia, cystoscopy/lithotripsy w/stent insertion 08-24-23 Past Anesthesia/Blood Transfusion Reactions: No Reported Reaction Additional Past Anesthesia/Blood Transfusion Reaction / Comm: no hx blood transfusions Past Psychological History: Anxiety Smoking Status: Never smoker Past Alcohol Use History: None Reported Past Drug Use History: None Reported - Past Family History Father Family Medical History: CVA/TIA Additional Family Medical History / Comment(s): svt Mother Additional Family Medical History / Comment(s): pulmonary HTN, kidney stones Medications and Allergies Home Medications Medication Instructions Recorded Confirmed Type Baclofen [Lioresal] 10 mg PO TID PRN 02/14/15 02/04/24 History Cholecalciferol [Vitamin D3 (25 5,000 unit PO MOWEFR 02/14/15 02/04/24 History Mcg = 1000 Iu)] Hyoscyamine Sulfate [Levsin] 0.125 mg PO Q4-6H PRN 02/14/15 02/04/24 History Loperamide [Imodium] 1 mg PO QID PRN 02/14/15 02/04/24 History Simvastatin [Zocor] 20 mg PO HS 02/14/15 02/04/24 History oxyBUTYnin chloride [Ditropan] 5 mg PO QID PRN 02/14/15 02/04/24 History Citalopram Hydrobromide 40 mg PO DAILY@1200 08/16/23 02/04/24 History [Citalopram HBr] Furosemide [Lasix] 40 mg PO DAILY 08/16/23 02/04/24 History Pantoprazole [Protonix] 40 mg PO Q48H 08/16/23 02/04/24 History Rivaroxaban [Xarelto] 20 mg PO HS 08/16/23 02/04/24 History lisinopriL [Prinivil] 5 mg PO DAILY@1200 08/16/23 02/04/24 History ALPRAZolam [Xanax] 0.25 mg PO DAILY PRN 09/15/23 02/04/24 History Levalbuterol Hfa Inhaler [Xopenex 2 puff INHALATION Q6HR PRN 01/12/24 02/04/24 History Hfa Inhaler] Midodrine [ProAmatine] 5 mg PO TID 01/12/24 02/04/24 History Allergies Allergy/AdvReac Type Severity Reaction Status Date / Time Sulfa (Sulfonamide Allergy Rash/Hives Verified 02/04/24 10:50 Antibiotics) sulfamethoxazole Allergy Rash/Hives Verified 02/04/24 10:50 [From Bactrim] trimethoprim [From Bactrim] Allergy Rash/Hives Verified 02/04/24 10:50 NSAIDS (Non-Steroidal AdvReac cannot Verified 02/04/24 10:50 Anti-Inflamma take per her DR due to kidney issues pentazocine lactate AdvReac Unknown Verified 02/04/24 10:50 [From Talwin] propoxyphene HCl AdvReac Unknown Verified 02/04/24 10:50 [From Darvon] propoxyphene napsylate AdvReac Unknown Verified 02/04/24 10:50 [From Darvocet-N] Objective - Constitutional General appearance: Present: cooperative - EENT Eyes: Present: EOMI - Neck Neck: Present: normal ROM - Respiratory Respiratory: bilateral: CTA - Cardiovascular Heart sounds: normal: S1, S2 - Integumentary Integumentary: Present: normal turgor - Musculoskeletal Musculoskeletal Comment(s): uses a walker - Psychiatric Psychiatric: Present: A&O x's 3 - Additional findings Additional findings: Breast Exam: BRA: 48C Inspection: Bilateral grade 3 ptosis Palpation: Right breast: Examination sitting up no dominant masses or nodules of concern Right axilla: No adenopathy of concern Left breast: Examination sitting up no dominant masses or nodules of concern Left axilla: No adenopathy of concern Assessment and Plan Assessment: Impression: Patient has had bilateral mammograms that on the left was performed on 02-04-2024 and that on the right most recently on 03-06-2024 the plan after this is for bilateral mammogram in 1 year If patient notes anything of concern she should tell us sooner Plan: Bilateral mammogram 1 year with examination at that time CC: Dr. Kay
[2024-03-09 15:48] VITALS: BP 114/70; PULSE 73; RESP 16; TEMP 97.8
== END ==
LOC: WWCWWP 15:18
PROVIDERS: ATTEND Surgery
DX: R92.8 Other abnormal and inconclusive findings on diagnostic imaging of breast (principal); N63.15 Unspecified lump in the right breast, overlapping quadrants; Z88.2 Allergy status to sulfonamides; Z88.1 Allergy status to other antibiotic agents; Z88.8 Allergy status to other drugs, medicaments and biological substances; Z88.5 Allergy status to narcotic agent

== ENCOUNTER → 2024-03-20 | Outpatient (CLI) | payer MEDICARE ==
--- NOTE | 2024-03-20 17:55 | XR ---
EXAMINATION TYPE: XR bone survey complete DATE OF EXAM: 03/20/2024 3:47 PM CLINICAL INDICATION:Female, 73 years old with history of D47.2 N18.9 M10.9 J45.998 MONOCLONAL GAMMOPA THY; [facility] COMPARISON: None TECHNIQUE: Several radiographics images of the axial and appendicular spine were obtained in multipl e projections. FINDINGS: Skull: No lytic or sclerotic lesions are identified. Spine: No lytic or sclerotic lesions are identified. The pedicles are intact. There are no fractures, dislocations or subluxations. Multilevel disc degeneration changes with joint space narrowing osteop hyte formation. Chest: No lytic or sclerotic lesions are identified. The ribs have a normal appearance. Abdomen/Pelvis: No lytic or sclerotic lesions are identified. Extremities: No lytic or sclerotic lesions are identified. Degeneration changes of the large joints o f the body with osteophyte formation and joint space narrowing. IMPRESSION: No evidence for suspicious lytic or osteoblastic lesion.
== END | disposition home or self-care (01) ==
LOC: RADXRMAIN 14:46
PROVIDERS: ATTEND Internal Medicine Hematology & Oncology
DX: D47.2 Monoclonal gammopathy (principal); N18.9 Chronic kidney disease, unspecified; M10.9 Gout, unspecified; J45.998 Other asthma
CPT/HCPCS: 77075

== ENCOUNTER → 2024-03-20 | Outpatient (CLI) | payer MEDICARE ==
--- NOTE | 2024-03-20 20:14 | CT ---
EXAMINATION TYPE: CT chest wo con CT DLP: 373.3 mGycm, Automated exposure control for dose reduction was used. DATE OF EXAM: 03/20/2024 4:34 PM COMPARISON: 07/01/2023 CLINICAL INDICATION:Female, 73 years old with history of R93.89 ABNORMAL FINDINGS ON DX IMAGING OF OT H BODY; [facility], lump on chest TECHNIQUE: Multiple axial images were obtained through the chest. Sagittal and coronal reformats were created for review. Contrast used: mL of (None if empty) Oral contrast used: (None if empty) FINDINGS: LUNGS/ PLEURA: No focal consolidation, pneumothorax or pleural fusion. Right middle lobe 3 mm nodule series 4 image 44. 3 mm nodule series 4 image 47 left lower lobe. Right lower lobe pulmonary nodule m easuring 5 mm series 4 image 43. Streaky atelectasis posterior right lung lower lung. AIRWAY: Patent and unremarkable. HEART: Size within normal limits. Aortic valve calcifications. 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 MEDIASTINUM: No gross evidence of adenopathy. VASCULATURE: No aortic aneurysm. Hematoma is dilated up to 40 mm. MUSCULOSKELETAL: No acute osseous abnormalities SOFT TISSUES/LYMPH NODES: Unremarkable. LOWER NECK: No significant findings. UPPER ABDOMEN: Inferior palpable marker correlates with the xiphoid process. The superior palpable ma rker correlates with costochondral junction. Mildly atrophic kidneys. Others close of the arterial va scular structure. Simple appearing hepatic cyst. IMPRESSION: 1. Inferior palpable marker correlates with the xiphoid process. 2. Superior palpable marker correlates with costochondral junction 3. Scattered pulmonary nodules which are stable from immediate prior. No suspicious masses or lympha denopathy. 4. Pulmonary hypertension 5. Aortic valve calcifications.
== END | disposition home or self-care (01) ==
LOC: RADCTMAIN 14:35
PROVIDERS: ATTEND Family Medicine
DX: R93.89 Abnormal findings on diagnostic imaging of other specified body structures (principal); R91.8 Other nonspecific abnormal finding of lung field; I27.20 Pulmonary hypertension, unspecified; I35.8 Other nonrheumatic aortic valve disorders
CPT/HCPCS: 71250

== ENCOUNTER → 2024-04-11 | Outpatient (CLI) | payer MEDICARE ==
[2024-04-11 19:39] LABS: HCT 33.3 % (37.2-46.3); HGB 10.5 g/dL (12.0-15.0); MCH 26.9 pg (27.0-32.0); MCHC 31.5 g/dL (32.0-37.0); MCV 85.2 FL (80.0-97.0); Mean Platelet Volume 9.6 FL (9.5-12.2); NRBC Per 100 WBC 0 X 10*3/uL (0.00-0.01); Platelet Count 257 X 10*3/uL (140-440); RBC 3.91 X 10*6/uL (4.10-5.20); RDW 19.6 % (11.5-14.5); WBC 6.24 X 10*3/uL (4.50-10.00)
[2024-04-11 20:04] LABS: Appearance,Urine Cloudy (Clear); Bilirubin,Urine Small (Negative); Blood,Urine Negative (Negative); Color,Urine Dark Yellow (Yellow); Ketones,Urine Trace (Negative); Nitrite,Urine Negative (Negative); PH, Urine 5.5; Specific Gravity,Urine 1.017 (1.001-1.030)
[2024-04-11 21:01] LABS: % Iron Saturation 13.68 (12.00-45.00); ALT 11 U/L (8-44); AST 18 U/L (13-35); Albumin 4.2 g/dL (3.8-4.9); Alkaline Phosphatase 55 U/L (41-126); BUN/Creat Ratio 23.94 Ratio (12.00-20.00); Blood Urea Nitrogen 38.3 mg/dL (9.0-27.0); Calcium 9.5 mg/dL (8.7-10.3); Carbon Dioxide 23.8 mmol/L (21.6-31.8); Chloride 100 mmol/L (96-109); Ferritin 25.5 ng/mL (10.0-291.0); Glucose 97 mg/dL (70-110); Iron 58 UG/DL (50-170); Potassium 4.5 mmol/L (3.5-5.5); Sodium 137 mmol/L (135-145); Total Bilirubin 0.3 mg/dL (0.3-1.2); Total Iron Binding Capacity 424 UG/DL (228-460); Total Protein 6.2 g/dL (6.2-8.2); Uric Acid 7.3 mg/dL (2.9-7.7)
[2024-04-11 21:02] LABS: Bacteria,Urine 2+ (None Seen); Calcium Oxalate Crystals,Urine Present (None Seen); Uric Acid Crystals,Urine Present
== END | disposition home or self-care (01) ==
LOC: LABWHC1 14:31
PROVIDERS: ATTEND Internal Medicine Nephrology
DX: N39.0 Urinary tract infection, site not specified (principal); M10.9 Gout, unspecified; D63.1 Anemia in chronic kidney disease; N18.32 Chronic kidney disease, stage 3b; R80.9 Proteinuria, unspecified
CPT/HCPCS: 36415; 80053; 81001; 82043; 82570; 82728; 83540; 83550; 84550; 85027

== ENCOUNTER → 2024-06-19 | Outpatient (CLI) | payer MEDICARE ==
[2024-06-19 21:05] LABS: Appearance,Urine Cloudy (Clear); Bilirubin,Urine Negative (Negative); Blood,Urine Negative (Negative); Color,Urine Yellow (Yellow); Ketones,Urine Trace (Negative); Nitrite,Urine Negative (Negative); Specific Gravity,Urine 1.014 (1.001-1.030); Urobilinogen,Urine 0.2 E.U./DL
[2024-06-19 21:41] LABS: % Iron Saturation 113.75 (12.00-45.00); ALT 14 U/L (8-44); AST 16 U/L (13-35); Albumin 4.3 g/dL (3.8-4.9); Albumin/Globulin Ratio 2.15 Ratio (1.60-3.17); Alkaline Phosphatase 54 U/L (41-126); BUN/Creat Ratio 35.61 Ratio (12.00-20.00); Blood Urea Nitrogen 81.9 mg/dL (9.0-27.0); Calcium 9.6 mg/dL (8.7-10.3); Chloride 103 mmol/L (96-109); Glucose 101 mg/dL (70-110); Iron 422 UG/DL (50-170); Potassium 5.5 mmol/L (3.5-5.5); Sodium 135 mmol/L (135-145); Total Bilirubin <0.2 mg/dL (0.3-1.2); Total Iron Binding Capacity 371 UG/DL (228-460); Total Protein 6.3 g/dL (6.2-8.2)
[2024-06-19 21:42] LABS: HCT 32.2 % (37.2-46.3); HGB 10.1 g/dL (12.0-15.0); MCH 29.1 pg (27.0-32.0); MCHC 31.4 g/dL (32.0-37.0); MCV 92.8 FL (80.0-97.0); Mean Platelet Volume 9.6 FL (9.5-12.2); NRBC Per 100 WBC 0 X 10*3/uL (0.00-0.01); Platelet Count 248 X 10*3/uL (140-440); RBC 3.47 X 10*6/uL (4.10-5.20); RDW 15.9 % (11.5-14.5); WBC 6.23 X 10*3/uL (4.50-10.00)
[2024-06-19 21:50] LABS: Bacteria,Urine None Seen (None Seen); Calcium Oxalate Crystals,Urine Present (None Seen); Uric Acid Crystals,Urine Present
[2024-06-20 01:25] LABS: Anti-DNA, DS unit <1.0 IU/mL; DNA Double-Stranded Negative (Negative)
[2024-06-21 14:27] LABS: C-ANCA <1:20 Titer (<1:20)
== END | disposition home or self-care (01) ==
LOC: LABWHC1 13:36
PROVIDERS: ATTEND Internal Medicine
DX: N18.32 Chronic kidney disease, stage 3b (principal); D63.1 Anemia in chronic kidney disease; N39.0 Urinary tract infection, site not specified; M10.9 Gout, unspecified; R80.9 Proteinuria, unspecified
CPT/HCPCS: 36415; 80053; 81001; 82043; 82570; 82728; 83516; 83540; 83550; 84550; 85027; 86038; 86160; 86162; 86225; 86255

== ENCOUNTER 2024-06-27 08:20 | Day surgery (SDC) | payer MEDICARE ==
[2024-06-26 08:32] VITALS: BMI 31.9
[~2024-06-27 08:20] MED LIST changes: -LACTATED RINGERS 1,000 ML IV SCH
[2024-06-27 09:55] VITALS: RESP 16; TEMP 97.6
[2024-06-27] MEDS: LACTATED RINGERS 1,000 ML IV SCH (10:08)
[2024-06-27] MEDS: IV FLUID CONTINUATION 1,000 ML IV ONE (10:09)
[2024-06-27] MEDS ORDERED: ePHEDrine 50 MG/ML 1 ML VIAL ONE (10:28)
[2024-06-27] MEDS ORDERED: LIDOCAINE 2% (PF) 20 MG/ML 5 ML VIAL ONE (10:28)
[2024-06-27] MEDS ORDERED: PROPOFOL 10 MG/ML 20 ML VIAL IV ONE (10:28)
--- NOTE | 2024-06-27 10:42 | P.GSHP ---
History of Present Illness H&P Date: 06/27/24 Chief Complaint: Colon cancer screening 74-year-old female here for colonoscopy. Last colonoscopy 9 years ago. Patient had a small hyperplastic polyp. No bowel complaints. Describes history of irritable bowel syndrome. No family history of colon cancer. Past Medical History Past Medical History: Atrial Fibrillation, Asthma, GERD/Reflux, Hyperlipidemia, Hypertension, Musculoskeletal Disorder, Pulmonary Embolus (PE), Renal Disease, Sleep Apnea/CPAP/BIPAP Additional Past Medical History / Comment(s): urinary incontinence, IBS, heart murmur, back spasms, cyst on liver. kidney stones with blood in urine since 06/27/23, PE caused a pulmonary. reduced kidney function, not using cpap right now. edema to lower legs, SOB w/exertion. Stage 3b kidney failure dx 2023, pulmonary infarct History of Any Multi-Drug Resistant Organisms: None Reported Past Surgical History: Hernia Repair, Tonsillectomy Additional Past Surgical History / Comment(s): cystoscopy, colonoscopy, umbilical hernia, cystoscopy/lithotripsy w/stent insertion 08-24-23 Past Anesthesia/Blood Transfusion Reactions: No Reported Reaction Additional Past Anesthesia/Blood Transfusion Reaction / Comment(s): no hx blood transfusions Smoking Status: Never smoker - Past Family History Father Family Medical History: CVA/TIA Additional Family Medical History / Comment(s): svt Mother Additional Family Medical History / Comment(s): pulmonary HTN, kidney stones Medications and Allergies Home Medications Medication Instructions Recorded Confirmed Type Baclofen [Lioresal] 10 mg PO TID PRN 02/14/15 06/27/24 History Cholecalciferol [Vitamin D3 (25 5,000 unit PO MOWEFR 02/14/15 06/27/24 History Mcg = 1000 Iu)] Hyoscyamine Sulfate [Levsin] 0.125 mg PO Q4-6H PRN 02/14/15 06/27/24 History Loperamide [Imodium] 1 mg PO QID PRN 02/14/15 06/27/24 History Simvastatin [Zocor] 20 mg PO HS 02/14/15 06/27/24 History Citalopram Hydrobromide 40 mg PO DAILY@1200 08/16/23 06/27/24 History [Citalopram HBr] Furosemide [Lasix] 40 mg PO DAILY 08/16/23 06/27/24 History Pantoprazole [Protonix] 40 mg PO Q48H 08/16/23 06/27/24 History Rivaroxaban [Xarelto] 20 mg PO HS 08/16/23 06/27/24 History lisinopriL [Prinivil] 20 mg PO DAILY@1200 08/16/23 06/27/24 History ALPRAZolam [Xanax] 0.25 mg PO DAILY PRN 09/15/23 06/27/24 History Levalbuterol Hfa Inhaler [Xopenex 2 puff INHALATION Q6HR PRN 01/12/24 06/27/24 History Hfa Inhaler] Allergies Allergy/AdvReac Type Severity Reaction Status Date / Time Sulfa (Sulfonamide Allergy Rash/Hives Verified 06/19/24 12:17 Antibiotics) sulfamethoxazole Allergy Rash/Hives Verified 06/19/24 12:17 [From Bactrim] trimethoprim [From Bactrim] Allergy Rash/Hives Verified 06/19/24 12:17 Iodinated Contrast Media AdvReac Unknown Verified 06/19/24 12:19 NSAIDS (Non-Steroidal AdvReac cannot Verified 06/19/24 12:17 Anti-Inflamma take per her DR due to kidney issues pentazocine lactate AdvReac Unknown Verified 06/19/24 12:17 [From Talwin] propoxyphene HCl AdvReac Unknown Verified 06/19/24 12:17 [From Darvon] propoxyphene napsylate AdvReac Unknown Verified 06/19/24 12:17 [From Darvocet-N] Surgical - Exam Vital Signs Temp Pulse Resp BP Pulse Ox 97.6 F 65 16 119/55 98 06/27/24 09:54 06/27/24 09:54 06/27/24 09:54 06/27/24 09:54 06/27/24 09:54 Physical exam: General: Well-developed, well-nourished HEENT: Normocephalic, sclerae nonicteric Abdomen: Nontender, nondistended Extremities: No edema Neuro: Alert and oriented Assessment and Plan (1) Colon cancer screening Narrative/Plan: Will proceed with colonoscopy at this time. Current Visit: Yes Status: Acute Code(s): Z12.11 - ENCOUNTER FOR SCREENING FOR MALIGNANT NEOPLASM OF COLON SNOMED Code(s): 080230141
--- NOTE | 2024-06-27 11:13 | P.PCN ---
Date of Procedure: 06/27/24 Procedure(s) Performed: PREOPERATIVE DIAGNOSIS: Colon cancer screening POSTOPERATIVE DIAGNOSIS: Hepatic flexure polyp, rectal polyp, diverticulosis PROCEDURE: Colonoscopy with snare polypectomy ANESTHESIA: MAC SURGEON: David Awad M.D. SPECIMENS: Polyps ENDOSCOPIC PROCEDURE: The patient was placed on the endoscopy table in the left decubitus position. The Olympus colonoscope was inserted into the anus and passed under direct visualization to the base of the cecum. The appendiceal orifice was visualized. From that point the scope was slowly withdrawn inspecting all surfaces carefully. There were no neoplastic inflammatory or polypoid lesions throughout the cecum. In the ascending hepatic flexure region there was a small polyp that was removed using the snare with cautery technique. The remainder of the transverse descending and sigmoid colon appeared normal. In the rectum another small polyp was noted and removed using the snare with cautery technique. There was moderate left-sided diverticulosis. Digital rectal examination was normal. The patient was taken to the recovery room in stable condition per anesthesia guidelines. RECOMMENDATIONS: Await biopsy results. Will contact patient with timing for next colonoscopy.
[2024-06-27 11:30] VITALS: BP 95/42; PULSE 68
== END 2024-06-27 12:07 | disposition home or self-care (01) ==
LOC: ORWHC2ENDO 08:20
PROVIDERS: ATTEND Surgery
DX: Z12.11 Encounter for screening for malignant neoplasm of colon (principal); D12.3 Benign neoplasm of transverse colon; K62.1 Rectal polyp; K57.30 Diverticulosis of large intestine without perforation or abscess without bleeding; Z87.19 Personal history of other diseases of the digestive system; E78.5 Hyperlipidemia, unspecified; I10 Essential (primary) hypertension; I48.91 Unspecified atrial fibrillation; J45.909 Unspecified asthma, uncomplicated; K21.9 Gastro-esophageal reflux disease without esophagitis; G47.30 Sleep apnea, unspecified; Z79.899 Other long term (current) drug therapy; Z79.01 Long term (current) use of anticoagulants; Z88.2 Allergy status to sulfonamides; Z88.8 Allergy status to other drugs, medicaments and biological substances; Z91.041 Radiographic dye allergy status; Z88.6 Allergy status to analgesic agent; Z86.711 Personal history of pulmonary embolism
CPT/HCPCS: 88305; 45385; J2704; J2003

== ENCOUNTER → 2024-07-17 | Outpatient (CLI) | payer MEDICARE ==
--- NOTE | 2024-07-17 13:32 | US ---
EXAMINATION TYPE: US kidneys/renal and bladder DATE OF EXAM: 07/17/2024 COMPARISON: Renal ultrasound 11/27/2023 CLINICAL INDICATION: Female, 74 years old with history of N18.32 CKD; CKD 3 TECHNIQUE: Grayscale and color Doppler imaging of the bilateral kidneys and urinary bladder: FINDINGS: EXAM MEASUREMENTS: Right Kidney: 9.0 x 3.9 x 5.2 cm Left Kidney: 8.9 x 4.1 x 4.2 cm Right Kidney: Cortical thinning Left Kidney: Cortical thinning Bladder: not fully distended There is no evidence for hydronephrosis at this point in time. Cortical thinning of both kidneys wit h poor visualization of cortical medullary differentiation. No shadowing renal calculi identified. N o masses are identified. The urinary bladder is anechoic and underdistended which limits evaluation. IMPRESSION: 1. No hydronephrosis or nephrolithiasis. 2. Findings of bilateral chronic medical renal disease. [facility], , 07/17/2024 1:30 PM
== END | disposition home or self-care (01) ==
LOC: RADUSWWP 12:48
PROVIDERS: ATTEND Internal Medicine
DX: N18.32 Chronic kidney disease, stage 3b (principal)
CPT/HCPCS: 76770

== ENCOUNTER → 2024-07-17 | Outpatient (CLI) | payer MEDICARE ==
[2024-07-17 19:28] LABS: Protein, Total 5.9 g/dL (6.2-8.2)
[2024-07-17 19:32] LABS: Basophils # (A) 0.03 X 10*3/uL (0.00-0.10); Basophils % (A) 0.6 %; Eosinophils # (A) 0.07 X 10*3/uL (0.04-0.35); Eosinophils % (A) 1.4 %; HGB 10.6 g/dL (12.0-15.0); Lymphocytes # (A) 0.84 X 10*3/uL (0.90-5.00); Lymphocytes % (A) 16.8 %; MCH 29.9 pg (27.0-32.0); MCHC 31.2 g/dL (32.0-37.0); Mean Platelet Volume 9.4 FL (9.5-12.2); Monocytes # (A) 0.46 X 10*3/uL (0.20-1.00); Monocytes % (A) 9.2 %; NRBC Per 100 WBC 0 X 10*3/uL (0.00-0.01); Neutrophils # (A) 3.58 X 10*3/uL (1.80-7.70); Neutrophils % (A) 71.8 %; Platelet Count 234 X 10*3/uL (140-440); RBC 3.54 X 10*6/uL (4.10-5.20); RDW 15.4 % (11.5-14.5); WBC 4.99 X 10*3/uL (4.50-10.00)
[2024-07-17 19:34] LABS: Appearance,Urine Cloudy (Clear); Bilirubin,Urine Negative (Negative); Blood,Urine Negative (Negative); Color,Urine Yellow (Yellow); Ketones,Urine Trace (Negative); Nitrite,Urine Negative (Negative); PH, Urine 5.5; Specific Gravity,Urine 1.011 (1.001-1.030); Urobilinogen,Urine 0.2 E.U./DL
[2024-07-17 19:35] LABS: % Iron Saturation 32.76 (12.00-45.00); BUN/Creat Ratio 14.67 Ratio (12.00-20.00); Blood Urea Nitrogen 17.6 mg/dL (9.0-27.0); Carbon Dioxide 23.1 mmol/L (21.6-31.8); Chloride 103 mmol/L (96-109); Glucose 102 mg/dL (70-110); Iron 96 UG/DL (50-170); Potassium 4.2 mmol/L (3.5-5.5); Sodium 139 mmol/L (135-145); Total Iron Binding Capacity 293 UG/DL (228-460); Uric Acid 6.3 mg/dL (2.9-7.7)
[2024-07-17 19:36] LABS: ALT 9 U/L (8-44); AST 17 U/L (13-35); Albumin 4.1 g/dL (3.8-4.9); Albumin/Globulin Ratio 2.05 Ratio (1.60-3.17); Alkaline Phosphatase 49 U/L (41-126); Calcium 9.3 mg/dL (8.7-10.3); Total Bilirubin 0.3 mg/dL (0.3-1.2); Total Protein 6.1 g/dL (6.2-8.2)
[2024-07-17 19:56] LABS: Amorphous Sediment,Urine Present (None Seen); Bacteria,Urine Trace (None Seen); Uric Acid Crystals,Urine Present (None Seen)
[2024-07-18 13:19] LABS: Free Kappa Lt Chain Qnt, Serum 2.59 mg/dL (0.33-1.94); Free Lambda Lt Chain Qnt, Seru 2.92 mg/dL (0.57-2.63)
[2024-07-20 08:28] LABS: Albumin 3.69 g/dL (3.80-4.90); Gamma Globulin 0.57 g/dL (0.70-1.50)
== END | disposition home or self-care (01) ==
LOC: LABWHC1 13:13
PROVIDERS: ATTEND Internal Medicine Hematology & Oncology
CPT/HCPCS: 36415; 80053; 81001; 82043; 82570; 82728; 83540; 83550; 83883; 84165; 84550; 85025

== ENCOUNTER → 2024-08-22 | Outpatient (CLI) | payer MEDICARE ==
[2024-08-23 03:00] LABS: BUN/Creat Ratio 21.67 Ratio (12.00-20.00); Carbon Dioxide 25.6 mmol/L (21.6-31.8); Chloride 104 mmol/L (96-109); Glucose 87 mg/dL (70-110); Potassium 4.5 mmol/L (3.5-5.5); Sodium 140 mmol/L (135-145)
[2024-08-23 03:01] LABS: ALT 15 U/L (8-44); AST 19 U/L (13-35); Albumin 4.3 g/dL (3.8-4.9); Albumin/Globulin Ratio 2.05 Ratio (1.60-3.17); Alkaline Phosphatase 51 U/L (41-126); Calcium 9.5 mg/dL (8.7-10.3); Globulin 2.1 g/dL (1.6-3.3); Total Bilirubin 0.3 mg/dL (0.3-1.2); Total Protein 6.4 g/dL (6.2-8.2)
== END | disposition home or self-care (01) ==
LOC: LABWHC1 15:02
PROVIDERS: ATTEND Internal Medicine
DX: N18.32 Chronic kidney disease, stage 3b (principal)
CPT/HCPCS: 36415; 80053

== ENCOUNTER → 2025-03-05 | Outpatient (CLI) | payer MEDICARE ==
--- NOTE | 2025-03-05 13:57 | MM ---
Reason for Exam: Follow-up at short interval from prior study. Last mammogram was performed 1 year(s) and 7 month(s) ago. Patient History: Menarche at age 10. Patient has no children. Postmenopausal. 01/26/2024, Benign US biopsy breast VAD RT on the right side. Risk Values: Jacqueline 5 year model risk: 2.3%. NCI Lifetime model risk: 4.7%. Prior Study Comparison: 01/04/2023 Bilateral Diagnostic Mammogram, Unknown. 02/04/2024 Left MG 3D diag mammo w/cad LT, [facility]. 03/06/2024 Right MG 3D diag mammo w/cad RT, [facility]. Tissue Density: The breasts are heterogeneously dense, which may obscure small masses. Findings: Analyzed By CAD. Mammotome biopsy clip right breast is redemonstrated. Benign-appearing vascular calcification in the right breast is again seen. No suspicious new mass or distortion. Overall Assessment: Benign, BI-RAD 2 Management: Screening Mammogram of both breasts in 1 year. . Results were given to the patient verbally at the time of exam. Patient should continue monthly self-breast exams. A clinical breast exam by your physician is recommended on an annual basis. This exam should not preclude additional follow-up of suspicious palpable abnormalities. Note on Jacqueline scores and lifetime risk: 1. A Jacqueline score greater than 3% is considered moderate risk. If this is the case, consider specialist referral to assess eligibility for a risk reducing agent. 2. If overall lifetime risk for the development of breast cancer is 20% or higher, the patient may qualify for future screening with alternating mammogram and breast MRI. [facility], , 03/05/2025 1:54 PM. Electronically signed and approved by: Dylan Burns M.D.
== END | disposition home or self-care (01) ==
LOC: RADMAMWWP 13:31
PROVIDERS: ATTEND Surgery
DX: R92.8 Other abnormal and inconclusive findings on diagnostic imaging of breast (principal); R92.333 Mammographic heterogeneous density, bilateral breasts; Z78.0 Asymptomatic menopausal state
CPT/HCPCS: 77066; G0279; 77062

== ENCOUNTER → 2025-04-13 | Outpatient (CLI) | payer MEDICARE ==
[2025-04-13 14:33] VITALS: BP 114/77; PULSE 70; RESP 17; TEMP 97.1
--- NOTE | 2025-04-13 15:03 | P.PN ---
Subjective Progress Note Date: 04/13/25 Principal diagnosis: Fibrocystic breast disease 04-13-24 History of Present Illness Consult date: 02/04/24 Reason for Consult: ultrrasound core biopsy of the right breast Requesting physician: Joe Kay History of present illness: Radha is a 73-year-old female seen in consultation regarding a right breast ultrasound-guided core biopsy. She underwent a bilateral mammogram at [facility] on 01-04-2023. This was considered BI-RADS 0 and an ultrasound of the right breast was recommended. This revealed a 9 mm lesion in the right breast felt to be probably benign and short interval follow-up in 6 months recommended. At that time she also had a diagnostic mammogram of the right breast. A repeat right breast ultrasound and diagnostic mammogram were performed on 08-12-2023. This revealed an enlarging right breast mass at the 9 o'clock position of the right breast. BI-RADS 4 and ultrasound core biopsy recommended. An ultrasound core biopsy of this area was performed on 01-26-2024. This was benign breast with fibrocystic changes including microcalcifications. Final report is not available from the radiologist on this. She is not complaining of any lumps, masses or nodules in her breast. She has not had any surgery on her breast. No nipple discharge or changes of concern. No recent infection or trauma to her breast. 03-09-24 The patient had had a right breast diagnostic mammogram on 03-06-24 which was BIRAD 2 a left breast mammogram was done on 02-04-24 which did not show any areas of concern She is not complaining of any areas of concern in either breast 04-13-24 Radha is a 75-year-old female who is being followed for fibrocystic breast disease. She underwent a bilateral mammogram on 03 05 25 which was benign BI- RADS 2. She is not complaining of any new lumps masses or nodules of concern in either breast. Uses a walker for stability caffeine: none nicotine:none chocolate: stopped BCP: 5 years hormones: less than 1 year at menopause Family History: maternal grandmother: female cancer ? type sister: skin cancer, melanoma father: skin cancer Hormonal History: menarche: 10 G0 menopause: 50 hormones: < 1 year Surgical History: 2 colonoscopies umbilical hernia tonsil bilateral kidney stones cardioversion/atrial fib/ablation Medical History: pulmonary infarct pulmonary embolism xeralto IBS HTN GERD kidney stones stage 3 kidney failure Social History: Nicotine: Negative Alcohol stopped use to drink glass of wine at night drugs: none Review of Systems - Constitutional Denies fever, Denies weight loss - EENT Eyes: denies blurred vision Ears: bilateral: decreased hearing Ears, nose, mouth and throat: Denies dysphagia - Breasts bilateral: as per HPI - Cardiovascular Reports as per HPI - Respiratory Reports as per HPI - Gastrointestinal Reports as per HPI - Genitourinary Genitourinary: Reports hematuria Menstruation: Reports postmenopausal - Musculoskeletal Reports as per HPI - Integumentary Integumentary Comment(s): xeralto Reports unusual bruising - Neurological Denies headaches, Denies syncope - Psychiatric Reports anxiety - Endocrine Reports weight change - Hematologic/Lymphatic Reports as per HPI Hematologic/Lymphatic Comment(s): xeralto - Allergic/Immunologic Reports as per HPI Past Medical History Past Medical History: Atrial Fibrillation, Asthma, GERD/Reflux, Hyperlipidemia, Hypertension, Musculoskeletal Disorder, Pulmonary Embolus (PE), Renal Disease, Sleep Apnea/CPAP/BIPAP Additional Past Medical History / Comment(s): urinary incontinence, IBS, heart murmur, back spasms, cyst on liver. kidney stones with blood in urine since 06/27/23, PE caused a pulmonary. reduced kidney function, not using cpap right now. edema to lower legs, SOB w/exertion. Stage 3b kidney failure dx 2023 History of Any Multi-Drug Resistant Organisms: None Reported Past Surgical History: Hernia Repair, Tonsillectomy Additional Past Surgical History / Comment(s): cystoscopy, colonoscopy, umbilical hernia, cystoscopy/lithotripsy w/stent insertion 08-24-23 Past Anesthesia/Blood Transfusion Reactions: No Reported Reaction Additional Past Anesthesia/Blood Transfusion Reaction / Comm: no hx blood transfusions Past Psychological History: Anxiety Smoking Status: Never smoker Past Alcohol Use History: None Reported Past Drug Use History: None Reported - Past Family History Father Family Medical History: CVA/TIA Additional Family Medical History / Comment(s): svt Mother Additional Family Medical History / Comment(s): pulmonary HTN, kidney stones Medications and Allergies Home Medications Medication Instructions Recorded Confirmed Type Baclofen [Lioresal] 10 mg PO TID PRN 02/14/15 02/04/24 History Cholecalciferol [Vitamin D3 (25 5,000 unit PO MOWEFR 02/14/15 02/04/24 History Mcg = 1000 Iu)] Hyoscyamine Sulfate [Levsin] 0.125 mg PO Q4-6H PRN 02/14/15 02/04/24 History Loperamide [Imodium] 1 mg PO QID PRN 02/14/15 02/04/24 History Simvastatin [Zocor] 20 mg PO HS 02/14/15 02/04/24 History oxyBUTYnin chloride [Ditropan] 5 mg PO QID PRN 02/14/15 02/04/24 History Citalopram Hydrobromide 40 mg PO DAILY@1200 08/16/23 02/04/24 History [Citalopram HBr] Furosemide [Lasix] 40 mg PO DAILY 08/16/23 02/04/24 History Pantoprazole [Protonix] 40 mg PO Q48H 08/16/23 02/04/24 History Rivaroxaban [Xarelto] 20 mg PO HS 08/16/23 02/04/24 History lisinopriL [Prinivil] 5 mg PO DAILY@1200 08/16/23 02/04/24 History ALPRAZolam [Xanax] 0.25 mg PO DAILY PRN 09/15/23 02/04/24 History Levalbuterol Hfa Inhaler [Xopenex 2 puff INHALATION Q6HR PRN 01/12/24 02/04/24 History Hfa Inhaler] Midodrine [ProAmatine] 5 mg PO TID 01/12/24 02/04/24 History Allergies Allergy/AdvReac Type Severity Reaction Status Date / Time Sulfa (Sulfonamide Allergy Rash/Hives Verified 02/04/24 10:50 Antibiotics) sulfamethoxazole Allergy Rash/Hives Verified 02/04/24 10:50 [From Bactrim] trimethoprim [From Bactrim] Allergy Rash/Hives Verified 02/04/24 10:50 NSAIDS (Non-Steroidal AdvReac cannot Verified 02/04/24 10:50 Anti-Inflamma take per her DR due to kidney issues pentazocine lactate AdvReac Unknown Verified 02/04/24 10:50 [From Warner] propoxyphene HCl AdvReac Unknown Verified 02/04/24 10:50 [From Darvon] propoxyphene napsylate AdvReac Unknown Verified 02/04/24 10:50 [From Darvocet-N] Objective - Vital Signs Vital signs: Vital Signs Temp 97.1 F L 04/13/25 14:29 Pulse 70 04/13/25 14:29 Resp 17 04/13/25 14:29 BP 114/77 04/13/25 14:29 Pulse Ox 97 04/13/25 14:29 FiO2 Intake & Output 04/12/25 04/13/25 04/13/25 18:59 06:59 18:59 Weight 91.626 kg - Constitutional General appearance: Present: cooperative - EENT Eyes: Present: EOMI ENT: Present: hearing grossly normal - Neck Neck: Present: normal ROM - Respiratory Respiratory: bilateral: CTA - Cardiovascular Rhythm: regular Heart sounds: normal: S1, S2 - Integumentary Integumentary: Present: normal turgor - Musculoskeletal Musculoskeletal Comment(s): uses a walker - Psychiatric Psychiatric: Present: A&O x's 3, appropriate affect, intact judgment & insight - Additional findings Additional findings: Breast Exam: BRA: 48C Inspection: Bilateral grade 3 ptosis Palpation: Right breast: Examination sitting up no dominant masses or nodules of concern Right axilla: No adenopathy of concern Left breast: Examination sitting up no dominant masses or nodules of concern Left axilla: No adenopathy of concern Assessment and Plan Assessment: Impression: Fibrocystic breast changes Bilateral mammogram 6 9 25 BI-RADS 2 Plan: Repeat bilateral mammogram in 1 year with physician exam at that time Patient to follow-up sooner any questions or concerns CC: Dr. Kay
== END ==
LOC: WWCWWP 14:11
PROVIDERS: ATTEND Surgery
DX: N60.11 Diffuse cystic mastopathy of right breast (principal); Z88.2 Allergy status to sulfonamides; Z88.8 Allergy status to other drugs, medicaments and biological substances; Z91.041 Radiographic dye allergy status; Z88.6 Allergy status to analgesic agent

== ENCOUNTER → 2025-04-13 | Outpatient (CLI) | payer MEDICARE ==
[2025-04-13 20:20] LABS: ALT 12 U/L (8-44); AST 20 U/L (13-35); Albumin 4.3 g/dL (3.8-4.9); Albumin/Globulin Ratio 2.69 Ratio (1.60-3.17); Alkaline Phosphatase 54 U/L (41-126); Anion Gap 11.40 mmol/L (4.00-12.00); BUN/Creat Ratio 20.90 Ratio (12.00-20.00); Blood Urea Nitrogen 20.9 mg/dL (9.0-27.0); Calcium 9.1 mg/dL (8.7-10.3); Carbon Dioxide 23.6 mmol/L (21.6-31.8); Chloride 101 mmol/L (96-109); Ferritin 55.4 ng/mL (10.0-291.0); Globulin 1.6 g/dL (1.6-3.3); Glucose 96 mg/dL (70-110); Iron 71 UG/DL (50-170); Magnesium 2.0 mg/dL (1.5-2.4); Potassium 4.3 mmol/L (3.5-5.5); Sodium 136 mmol/L (135-145); Total Iron Binding Capacity 339 UG/DL (228-460); Total Protein 5.9 g/dL (6.2-8.2); Uric Acid 5.0 mg/dL (2.9-7.7)
[2025-04-13 20:21] LABS: Basophils # (A) 0.02 X 10*3/uL (0.00-0.10); Basophils % (A) 0.4 %; Eosinophils # (A) 0.04 X 10*3/uL (0.04-0.35); Eosinophils % (A) 0.9 %; HCT 35.4 % (37.2-46.3); HGB 11.4 g/dL (12.0-15.0); Immature Grans, Automated 0.20 %; Lymphocytes # (A) 1.04 X 10*3/uL (0.90-5.00); Lymphocytes % (A) 23.2 %; MCH 30.3 pg (27.0-32.0); MCHC 32.2 g/dL (32.0-37.0); MCV 94.1 FL (80.0-97.0); Monocytes # (A) 0.33 X 10*3/uL (0.20-1.00); Monocytes % (A) 7.3 %; NRBC Per 100 WBC 0 X 10*3/uL (0.00-0.01); Neutrophils # (A) 3.05 X 10*3/uL (1.80-7.70); Neutrophils % (A) 68.0 %; Platelet Count 223 X 10*3/uL (140-440); RBC 3.76 X 10*6/uL (4.10-5.20); RDW 12.9 % (11.5-14.5); WBC 4.49 X 10*3/uL (4.50-10.00)
== END | disposition home or self-care (01) ==
LOC: LABWHC1 15:13
PROVIDERS: ATTEND Internal Medicine
DX: E55.9 Vitamin D deficiency, unspecified (principal); N18.32 Chronic kidney disease, stage 3b; D63.1 Anemia in chronic kidney disease; N39.0 Urinary tract infection, site not specified; N25.81 Secondary hyperparathyroidism of renal origin; M10.9 Gout, unspecified; R80.9 Proteinuria, unspecified
CPT/HCPCS: 36415; 80053; 82043; 82306; 82570; 82728; 83540; 83550; 83735; 83970; 84100; 84550; 85025